=== PATIENT | male | born 1970 | race Caucasian/White ===

== ENCOUNTER → 2019-01-09 11:18 | Outpatient (CLI) | payer OTHER, MEDICAID, SELFPAY ==
--- NOTE | 2019-01-09 11:19 | DI.RAD.S_ITS ---
PROCEDURE: XR KNEE RT 3V INDICATIONS: fall TECHNIQUE: 30 views of the knee were acquired. COMPARISON: None. FINDINGS: Bones: No fractures or dislocations. Joint spaces appear preserved. No suspicious bony lesions. Soft tissues: No joint effusion. No suspicious soft tissue calcifications. IMPRESSION: 1. No fracture or dislocation. Dictated by: Micha Lobo M.D. on 01/09/2019 at 11:50 Approved by: Micha Lobo M.D. on 01/09/2019 at 11:51
== END ==
PROVIDERS: Visit Provider Physician Assistant
DX: M25.561 Pain in right knee (principal)
CPT/HCPCS: 73562; 87070; 87205

== ENCOUNTER → 2019-01-09 12:35 | Outpatient (CLI) | payer OTHER, MEDICAID, SELFPAY | PROVIDERS: Visit Provider Physician Assistant | DX: S80.211A Abrasion, right knee, initial encounter (principal) | CPT/HCPCS: 87070; 87205 ==

== ENCOUNTER 2019-04-23 09:13 | Emergency (ER) | payer OTHER, MEDICAID, SELFPAY ==
[2019-04-23 09:22] VITALS: BP 110/74; PULSE 66; RESP 14; TEMP 36.8; O2SAT 94; BMI 31.0
--- NOTE | 2019-04-23 09:41 | ED.BACK ---
HPI - Back Pain/Injury General Chief Complaint: Back Pain/Injury Stated Complaint: Pain in upper back,pain down rt arm/elbow Time Seen by Provider: 04/23/19 09:40 Source: patient Limitations: no limitations History of Present Illness HPI Narrative: Patient is a 48-year-old male with acute on chronic thoracic back pain. It has been ongoing for a number of months if not years. 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 He has some numbness tingling in his left upper arm it has been there for a while. He feels like the pain is a little bit worse he has been taking ibuprofen and his medical marijuana he says his it is worse today. He has been using ice not heat. He does not want any narcotic medication. MD Complaint: back pain Related Data Previous Rx's Medication Instructions Recorded cyclobenzaprine 5 mg PO TID PRN #10 tab 04/23/19 Allergies Allergy/AdvReac Type Severity Reaction Status Date / Time No Known Drug Allergies Allergy Verified 04/23/19 09:22 Review of Systems Review of Systems ROS Unobtainable: All systems reviewed & are unremarkable except as noted in HPI and below Constitutional Constitutional: Denies chills, Denies fever(s), Denies lethargy and Denies weakness Eyes Eyes: Denies change in vision, Denies eye discharge, Denies irritation and Denies loss of vision Cardiovascular Cardiovascular: Denies chest pain, Denies irregular heart rhythm, Denies lightheadedness, Denies palpitations, Denies dyspnea, Denies dyspnea on exertion and Denies orthopnea Respiratory Respiratory: Denies cough, Denies dyspnea, Denies dyspnea on exertion and Denies wheezing Gastrointestinal Gastrointestinal: Denies abdominal pain, Denies change in bowel habits, Denies diarrhea, Denies nausea and Denies vomiting Musculoskeletal Musculoskeletal: Reports system reviewed and no additional complaints, except as docu and Reports back pain Integumentary/Breasts Skin/Breast: Denies pruritus, Denies erythema, Denies rash and Denies wounds Neurologic Neurologic: Denies loss of vision and Denies weakness Endocrine Endocrine: Denies palpitations Allergic/Immunologic Allergic/Immunologic: Denies wheezing [facility] Medical History Back pain, thoracic (Inactive) Surgical History Status post hernia repair Family History (Updated 10/09/14 @ 00:00 by Conversion Provider) Mother Age: 65 RSD (reflex sympathetic dystrophy) Social History Smoking Status: Never smoker Family History Mother Age: 65 RSD (reflex sympathetic dystrophy) Social History Smoking Status: Never smoker Exam Initial Vital Signs Initial Vital Signs: Vital Signs Temperature 98.2 F 04/23/19 09:22 Pulse Rate 66 04/23/19 09:22 Respiratory Rate 14 04/23/19 09:22 Blood Pressure 110/74 04/23/19 09:22 Pulse Oximetry 94 04/23/19 09:22 GENERAL: Well-appearing, well-nourished and in no acute distress. CARDIOVASCULAR: peripheral pulses in tact, cap refill <2 sec RESPIRATORY: No respiratory distress, speaks in full sentences without difficulty BACK: Thoracic back pain mostly to the right paraspinal muscles no midline tenderness. Not painful with palpation or movement EXTREMITIES: Normal range of motion, no clubbing or edema. Neurovascularly intact NEUROLOGICAL: Cranial nerves II through XII grossly intact. Normal gait and speech. SKIN: Warm, dry, no petechiae, no rashes or lesions. Course Vital Signs Vital signs: Vital Signs - 8 hr 04/23/19 09:22 04/23/19 10:30 Temperature 98.2 F Pulse Rate 66 77 Respiratory Rate 14 16 Blood Pressure 110/74 Blood Pressure [Left Arm] 115/71 Pulse Oximetry 94 96 MDM - Back Pain/Injury MDM Narrative Medical decision making narrative: Patient is not wanting any needles or Toradol. He is agreeable to Flexeril and muscle relaxer. Discharge Plan Departure Patient Disposition: Home Clinical Impression: Back pain, thoracic Qualifiers: Chronicity: acute Back pain laterality: right Qualified Code(s): M54.6 - Pain in thoracic spine Discharge Date/Time: 04/23/19 10:35 Instructions: DI for Thoracic Back Pain Activity Restrictions/Additional Instructions: *You have been diagnosed with thoracic back pain *What to do: Recommend outpatient follow-up with possible MRI and physical therapy *Continue to take medications as directed Flexeril 5 mg every 8 hours if needed for muscle spasm-->SENT TO [facility] Ibuprofen 800 mg every 8 hours with food for [id number] pain *Follow up with your primary care provider in 2-3 days *Return to ER if you should have increasing weakness, numbness, tingling or any new, worsening or concerning symptoms Prescriptions: New cyclobenzaprine 5 mg tablet 5 mg PO TID PRN (Reason: muscle spasm) Qty: 10 RF: 0 Referrals: Located Within [facility] [Outside]
[2019-04-23 10:30] VITALS: BP 115/71; PULSE 77; RESP 16; O2SAT 96
== END 2019-04-23 10:35 | disposition home or self-care (01) ==
PROVIDERS: Emergency Provider Emergency Medicine
DX: M54.6 Pain in thoracic spine (principal)
CPT/HCPCS: 99282

== ENCOUNTER → 2019-04-26 12:11 | Outpatient (CLI) | payer OTHER, MEDICAID, SELFPAY ==
--- NOTE | 2019-04-26 12:13 | DI.RAD.S_ITS ---
PROCEDURE: XR THORACIC SPINE 3V INDICATIONS: thoracic back pain right TECHNIQUE: 2 views of the thoracic spine were acquired. COMPARISON: None. FINDINGS: Bones: No fractures or dislocations. There is mild levoscoliosis of lower thoracic spine centered at T9-10 level is seen. Mild degenerative endplate changes are noted in mid to lower thoracic spine. No suspicious bony lesions. 12 pairs of ribs are noted, and appear intact where visualized. Soft tissues: No paravertebral stripe thickening. IMPRESSION: Mild degenerative disc disease in mid to lower thoracic spine. Very mild scoliosis of lower thoracic spine as above. No acute compression fracture or spondylolisthesis. Dictated by: Dain Jasso M.D. on 04/26/2019 at 15:42 Approved by: Dain Jasso M.D. on 04/26/2019 at 15:43
--- NOTE | 2019-04-26 12:13 | DI.RAD.S_ITS ---
PROCEDURE: XR CERVICAL SPINE 2V OR 3V INDICATIONS: neck pain with pushing objects away TECHNIQUE: 3 view(s) of the cervical spine were acquired. COMPARISON: None. FINDINGS: Bones: No fractures or dislocations to the C7 level. The lateral masses of C1 appear intact on the odontoid view. No suspicious bony lesions. Straightening of the normal lordotic curvature. Multilevel degenerative endplate sclerosis and spurring. Diffuse facet arthropathy. Moderate narrowing of the cervical disc spaces from the level of C4-C7. Corticated chronic ununited osteophyte at the anterior C3-C4 disc space. Soft tissues: No prevertebral soft tissue swelling. IMPRESSION: Moderate mid to lower multilevel cervical spondylosis and facet arthropathy Straightening of the normal lordotic curvature. Dictated by: Feliberto Phillips M.D. on 04/26/2019 at 15:07 Approved by: Feliberto Phillips M.D. on 04/26/2019 at 15:09
== END ==
PROVIDERS: PCP Nurse Practitioner Family; Visit Provider Nurse Practitioner Family
DX: M54.2 Cervicalgia (principal); M47.812 Spondylosis without myelopathy or radiculopathy, cervical region; M51.34 Other intervertebral disc degeneration, thoracic region; M41.84 Other forms of scoliosis, thoracic region
CPT/HCPCS: 72040; 72072

== ENCOUNTER 2019-04-27 09:09 | Emergency (ER) | payer OTHER, MEDICAID, SELFPAY ==
[2019-04-27 09:18] VITALS: BP 114/76; PULSE 105; RESP 18; TEMP 36.7; O2SAT 98; BMI 29.1
--- NOTE | 2019-04-27 09:30 | ED_ITS ---
HPI - Extremity Problem General Chief complaint: Extremity Problem,Nontraumatic Stated complaint: Neck & Arm Pain x2 weeks Time Seen by Provider: 04/27/19 09:26 Source: patient and EMS Mode of arrival: EMS Limitations: no limitations History of Present Illness HPI Narrative: The patient is a 48-year-old male who presents with chronic ongoing thoracic back pain in right arm numbness. He was seen evaluated here 04/23/2019 for the same. He does not want any narcotics. He was given Flexeril which she says has not helped at all. He actually got tablets with the PCP who ordered an x-ray and got him set up with physical therapy. Physical therapy is required before he has an MRI by his insurance. Unfortunately the physical therapy he was set up with does not take his insurance. He is extremely frustrated with the situation he continues to have pain mostly in his right arm. He is able to move his arm above his head all he has no decreased strength MD Complaint: extremity pain Related Data Home Medications Medication Instructions Recorded Confirmed ibuprofen 200 mg tablet 600 mg PO BID PRN tab 04/26/19 04/26/19 Previous Rx's Medication Instructions Recorded cyclobenzaprine 10 mg tablet 10 mg PO TID PRN #60 tab 04/26/19 lidocaine 3 patch TOP DAILY PRN #15 each 04/27/19 Allergies Allergy/AdvReac Type Severity Reaction Status Date / Time No Known Drug Allergies Allergy Verified 04/26/19 11:20 Review of Systems Review of Systems Narrative: GENERAL: Denies chills,fever HEENT: Denies throat pain RESPIRATORY: Denies dyspnea, cough, wheezing CARDIOVASCULAR: Denies chest pain, palpitations GASTROINTESTINAL: Denies nausea, vomiting MUSCULOSKELETAL: See HPI SKIN: No rash, no laceration, no pruritus NEUROLOGIC: Denies weakness, dizziness, headache, numbness 8 point review of systems is negative except for those stated above and HPI [facility] Medical History (Updated 04/27/19 @ 12:03 by Elisabeth Andersen CMA) Anxiety (Acute) Back pain, thoracic (Inactive) Diverticular disease (Acute ~2014) Hepatitis A (Acute ~1998) History of post traumatic stress disorder (Acute) Substance abuse (Acute) Surgical History Status post hernia repair Family History Mother Age: 65 RSD (reflex sympathetic dystrophy) Social History (Updated 04/27/19 @ 12:09 by Elisabeth Andersen CMA) marital status: pets and animals: Yes education level: high school occupational status: employed travel history: other leisure activities: other other: SKATING seatbelt use: always helmet use: Yes water heater temp set < 120 deg: Yes working smoke detector in home: Yes fire extinguisher in home: Yes carbon monox detector in home: Yes firearms in home: No do you feel safe at home: Yes Smoking Status: Former smoker second hand exposure: No alcohol intake: never substance use type: marijuana (Daily, smokes and edibles.) during the past year weight has: remained stable well-balanced diet: about half the time daily servings fruits/ve-1 caffeine: Yes (1-2 DRINKS PER DAY, NO SODA) eating out: 1-3 times/week additional social history: PHYSICAL ACTIVITIES: JOB IS [employer] Family History Mother Age: 65 RSD (reflex sympathetic dystrophy) Social History (Updated 04/27/19 @ 12:09 by Elisabeth Andersen CMA) marital status: pets and animals: Yes education level: high school occupational status: employed travel history: other leisure activities: other other: SKATING seatbelt use: always helmet use: Yes water heater temp set < 120 deg: Yes working smoke detector in home: Yes fire extinguisher in home: Yes carbon monox detector in home: Yes firearms in home: No do you feel safe at home: Yes Smoking Status: Former smoker second hand exposure: No alcohol intake: never substance use type: marijuana (Daily, smokes and edibles.) during the past year weight has: remained stable well-balanced diet: about half the time daily servings fruits/ve-1 caffeine: Yes (1-2 DRINKS PER DAY, NO SODA) eating out: 1-3 times/week additional social history: PHYSICAL ACTIVITIES: JOB IS [employer] Exam Initial Vital Signs Initial Vital Signs: Vital Signs Temperature 98.1 F 04/27/19 09:18 Pulse Rate 105 H 04/27/19 09:18 Respiratory Rate 18 04/27/19 09:18 Blood Pressure 114/76 04/27/19 09:18 Pulse Oximetry 98 04/27/19 09:18 GENERAL: Well-appearing, well-nourished and in no acute distress. CARDIOVASCULAR: peripheral pulses in tact, cap refill <2 sec RESPIRATORY: No respiratory distress, speaks in full sentences without difficulty EXTREMITIES: Normal range of motion, no clubbing or edema. Neurovascularly intact. Patient easily put both arms above his head. He seems to be moving his right arm without any difficulty. He is complaining of numbness tingling pain in his right upper arm and elbow area. None in his hands. No significant thoracic or midline spinal pain NEUROLOGICAL: Cranial nerves II through XII grossly intact. Normal gait and speech. SKIN: Warm, dry, no petechiae, no rashes or lesions. Course Vital Signs Vital signs: Vital Signs - 8 hr 04/27/19 09:18 Temperature 98.1 F Pulse Rate 105 H Respiratory Rate 18 Blood Pressure 114/76 Pulse Oximetry 98 MDM - Extremity (Nontraumatic) MDM Narrative Medical decision making narrative: I have called and spoken with Levy MONDRAGON and P updated her on the situation an insurance issue. She will be sure that physical therapy goes through the correct insurance company. I have given patient lidocaine patches to help with his neuropathy. We discussed escalating that to gabapentin or Lyrica if his pain persists. She will also try and expedite an MRI. I have discussed this with the patient he is happy with this result. He is ambulatory no sign of significant neuro deficits. No need for emergent MRI at this time Discharge Plan Departure Patient Disposition: Home Clinical Impression: Neuropathy Discharge Date/Time: 04/27/19 10:38 Instructions: DI for Peripheral Neuropathy Activity Restrictions/Additional Instructions: *You have been diagnosed with neuropathy *What to do: I have called and spoken with these meds office. They will try to expedite the MRI along with getting the correct physical therapy *Continue to take medications as directed Lidocaine patch in the specific area of pain for 12 hours only then r emove-->[facility] [place] *Follow up with your primary care provider in 2-3 days *Return to ER if you should have weakness and numbness tingling or any new, worsening or concerning symptoms Prescriptions: New lidocaine 5 % adhesive patch,medicated 3 patch TOP DAILY PRN (Reason: pain) Qty: 15 RF: 0 No Action ibuprofen 200 mg tablet 600 mg PO BID PRNRF: 0 cyclobenzaprine 10 mg tablet 10 mg PO TID PRN (Reason: muscle spasm) Qty: 60 RF: 0 Referrals: Timo Nicole ARNP [Primary Care Provider] -
[2019-04-27 10:33] VITALS: BP 104/69; PULSE 75; RESP 16; O2SAT 96
== END 2019-04-27 10:38 | disposition home or self-care (01) ==
PROVIDERS: Emergency Provider Emergency Medicine; PCP Nurse Practitioner Family
DX: G62.9 Polyneuropathy, unspecified (principal)
CPT/HCPCS: 99282

== ENCOUNTER 2019-06-07 13:45 | Outpatient (RCR) | payer OTHER, MEDICAID, SELFPAY ==
--- NOTE | 2019-05-09 19:08 | PT.OIE ---
Current Diagnoses Pain in thoracic spine (05/09/19) Past Medical History (Last Updated 04/27/19 @ 12:03 by Elisabeth Andersen CMA) Anxiety (Acute) Back pain, thoracic (Inactive) Diverticular disease (Acute ~2014) Hepatitis A (Acute ~1998) History of post traumatic stress disorder (Acute) Substance abuse (Acute) Past Surgical History (Last Reviewed 04/27/19 @ 09:53 by Laina Frye DO) Status post hernia repair Visit Care Team Role Provider Type MADELINE Orosco Attending Provider Advanced Funeral Service Manager Primary Care Provider Specialty: Family Practice Address: [address] [place] [address], [facility] Email: [email or web address] Physical Therapy Initial Evaluation PT-OP-A Visit Information Start: 05/09/19 18:19 Freq: Status: Active Protocol: Document 05/09/19 13:50 HH (Rec: 05/09/19 19:08 [email or web address]) Out-Patient Physical Therapy Visit Information Visit Information Visit Type Initial Evaluation Visit Start Time 13:50 Visit Stop Time 14:30 Total Visit Minutes 40 Visit Number 08/03 Evaluation Information Evaluation Date 05/09/19 PT-OP-B Current Condition Start: 05/09/19 18:19 Freq: Status: Active Protocol: Document 05/09/19 13:50 HH (Rec: 05/09/19 19:08 [email or web address]) Current Condition History of Current Condition Onset Date 6 weeks ago Current Complaints c/o Neck, R mid back and R shoulder pain with radicular symptoms. History of Current Condition Pt is a 48 yo male who presents to clinic with c/o Neck, R mid back and R shoulder pain with radicular symptoms. He stated his pain started from 6 weeks ago with unknown reason. His job does require him to lift heavy objects overhead repetitively and he thinks that might be the reason why. He described his pain started from his mid back and R upper trap area, along with radiating pain to his R elbow and tingling sensation to his first 4 fingers. He has been getting better for the past week and able to restore his full cervical and shoulder AROM. His pain and tingling sensation tends to get worse with cervical motion, especially cervical extension and lateral flexion. He stated flexion feels like stretching ; extension feels like pressure. He did get an assessment from [facility] but his insurance is not covered. The PT told pt he possibly has cervical herniated disc which causes nerve root impingement . He has been seeing chiropractor 1-2x/month to release his body tightness, but his last tx session made his R midback pain worse. Pt currently uses steroid / lidocaine to reduce pain. 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 To relieve his neck pain and radicular symptoms 2. To be able to lift heavy objects at work without pain again. Personal Factors Other Personal Factors That May Effect Chronic marijuana user Therapy/Recovery anxiety PTSD PT-OP-C Subjective Start: 05/09/19 18:19 Freq: Status: Active Protocol: Document 05/09/19 13:50 HH (Rec: 05/09/19 19:08 HH [email or web address]) OP-PT Subjective Patient Comments Patient Comments I just want to get better to reduce my pain. Patient Questionnaires Oswestry Low Back Index Oswestry Score 38 Oswestry Impairment 20 to 39% Impaired (Score 20- 39) Quick Dash- Upper Extremity Quick Dash UE Score 59.09 Quick Dash UE Impairment 40 to 59% Impaired (Score 40- 59) OP-PT Pain Assessment Location R shoulder Pain Location Details upper trap, thoracic paraspinal Intensity 6 Scale Used Numeric (1 - 10) Description Acute,Pinching,Pressure, Radiating Frequency Constant Pain Aggravating Factors Activity,Exercise,Bending, Lifting Pain Alleviating Factors Inactivity PT-OP-F Manual Assessment Start: 05/09/19 18:19 Freq: Status: Active Protocol: Document 05/09/19 13:50 HH (Rec: 05/09/19 19:08 HH [email or web address]) Manual Assessments Soft Tissue Assessment Soft Tissue Mobility Assessment Significant tenderness to touch and pressure at R levator scap, upper trap, suboccipital and thoracic paraspinals PT-OP-H Neuro Start: 05/09/19 18:19 Freq: Status: Active Protocol: Document 05/09/19 13:50 HH (Rec: 05/09/19 19:08 [email or web address]) Sensation Evaluation Gross Sensation Gross Sensation Right UE Impaired Sensation Description Numbness,Tingling Dermatome Impairments C5,C6,C7 Deep Tendon Reflex & Clonus Assessment Deep Tendon Reflex Bilateral Brachioradialis Deep Tendon Reflex 2+ Normal Bilateral Tricep Deep Tendon Reflex 2+ Normal Bilateral Bicep Deep Tendon Reflex 2+ Normal PT-OP-J Posture/Palpation/Skin Start: 05/09/19 18:19 Freq: Status: Active Protocol: Document 05/09/19 13:50 HH (Rec: 05/09/19 19:08 [email or web address]) Posture Evaluation Position Standing Head/C-Spine Posture Forward Head T-Spine Posture Increased Kyphosis Shoulder Posture (L) Rounded,(R) Rounded,(L) Forward,(R) Forward,(R) Elevated Comments Posture Comments Noticeable dowager's hump at T -T3 PT-OP-K Range of Motion Start: 05/09/19 18:19 Freq: Status: Active Protocol: Document 05/09/19 13:50 HH (Rec: 05/09/19 19:08 [email or web address]) Cervical Spine Range of Motion Cervical Spine Active Degrees Comments WFL cervical extension and lateral flexion with angulation at C7 -C8 Shoulder Goniometric Range of Motion Shoulder Left Active Shoulder ROM WFL Yes Testing Position Standing Right Active Shoulder ROM WFL Yes Testing Position Standing PT-OP-L Special Tests Start: 05/09/19 18:19 Freq: Status: Active Protocol: Document 05/09/19 13:50 HH (Rec: 05/09/19 19:08 [email or web address]) Special Tests Cervical Spine Special Tests Upper Limb Tension Test Test Results +VE Comments radial and median nerve Spurling's Test Test Results +VE Comments increased tingling and numbness to R hand Foraminal Compression Test Results +VE Comments increased tingling and numbness to R hand PT-OP-M Strength Start: 05/09/19 18:19 Freq: Status: Active Protocol: Document 05/09/19 13:50 HH (Rec: 05/09/19 19:08 [email or web address]) Cervical Spine Strength Cervical Spine Manual Muscle Testing Testing Position Sitting Flexion (C1-2) 4 Good Extension 4- Good- Rotation Left 4- Good- Rotation Right 4- Good- Lateral Flexion Left (C3) 4- Good- Lateral Flexion Right (C3) 4- Good- Reason Not Measured Pain Comments pain and numbness to R hand with overpressure for extension Shoulder Strength Shoulder Manual Muscle Testing Right Flexion 4+ Good+ Extension 4+ Good+ Abduction (C5) 4+ Good+ Adduction 4+ Good+ External Rotation 4+ Good+ Reason Not Measured Pain Comments pt c/o increased pain to right arm and tingling sensation to R hand noticeable increased R upper trap tension with shoulder abduction Left Flexion 5 Normal Extension 5 Normal Abduction (C5) 5 Normal Adduction 5 Normal Reason Not Measured WFL PT-OP-Q Treatments Start: 05/09/19 18:19 Freq: Status: Active Protocol: Document 05/09/19 13:50 HH (Rec: 05/09/19 19:08 [email or web address]) Therapeutic Exercises Sitting Exercises seated chin tuck Side bilateral Comments for HEP Manual Therapy Treatment Manual Traction cervical traction Body Position Supine Reps/Duration 10secs x 5 PT-OP-T Assessment and Plan Start: 05/09/19 18:19 Freq: Status: Active Protocol: Document 05/09/19 13:50 HH (Rec: 05/09/19 19:08 [email or web address]) Physical Therapy Assessment Rehab Potential Rehabilitation Potential Good Evaluation Complexity Number of Personal Factors/Comorbidities 1-2 Number of Body Systems Impaired 1-2 Clinical Presentation at Evaluation Stable Impairments Impairments Functional Activities, Functional Mobility,Pain, Posture,ROM,Sensation,Soft Tissue Mobility,Strength Other Concerns Barriers to Rehabilitation Pt stated he has PTSD and uses marijuana to manage his stress. Goals hEP Impairment pt does not have HEP Scientific Informatics Project Leader Goal (LTG) Pt will be able to perform HEP safely and independently to be able to return to work safely without increase in symptoms. LTG Duration 8 weeks pain Impairment pt has R shoulder and midback pain 6/10 at all times Short Term Goal (STG) Pt will not have R shoulder and midback pain >5/10 with overhead or cervical movements . STG Duration 4 weeks Scientific Informatics Project Leader Goal (LTG) Pt will not have R shoulder and midback pain >3/10 with overhead, cervical or lifting movements. LTG Duration 8 weeks radicular symptoms Impairment pt c/o tingling and numbness in his R hand at all times. Short Term Goal (STG) Pt will only have tingling and numbness in his R hand with overhead or cervical movements only. STG Duration 4 weeks Detention Goal (LTG) Pt will not have any tingling and numbness in his R hand with overhead or cervical movements. LTG Duration 8 weeks quick dash and oswestry LBP Impairment Pt scores Oswestry = 38, quickdash= 59 Short Term Goal (STG) Pt will reach <20-39% impairment for both Oswestry and quickdash questionnaires to improve his quality of life STG Duration 4 weeks Scientific Informatics Project Leader Goal (LTG) Pt will reach <1-19% impairment for both Oswestry and quickdash questionnaires to improve his quality of life LTG Duration 8 weeks Assessment Summary Assessment Pt is a 48 yo male who presents to clinic with c/o Neck, R mid back and R shoulder pain with radicular symptoms since 6 weeks ago. Pt appears to be very anxious easily and impulsive with instructed movements. He needed constant cues to slow him down in general. Upon assessment, pt presents Cervical radiculopathy possibly due to herniated disc from his repetitive overhead lifting activities from work. Pt's tingling and numbness sensation in his R hand got worse with close packed position (C/S extension, lateral flexion/ rotation), along with +ve special tests: cervical compression, spurling to R and UTTT for radial and median nerve. However, at this point, pt does not demonstrate any ROM/ strength loss, but there's noticeable dowager's hump at CT junction region and R shoulder hike during overhead movements/ resting posture. There's hypertonic muscle activity for R upper trap, levator scap and thoracic paraspinals as well. Since pt appears to be impulsive and anxious easily, his progress might vary. He will still be a good candidate for skilled therapy to improve his neural sensitivity , thoracic joint mobility, R shoulder muscular tension, and functional mobility and strength for his labor demanding job. Physical Therapy Plan Frequency and Duration Frequency of Treatment 2x/Week Duration of Treatment 8 weeks Plan of Care Start Date 05/09/19 Plan of Care End Date 07/08/19 Therapeutic Interventions Therapeutic Interventions Home Exercise Program,Joint Mobilizations,Manual Therapy, Neuromuscular Re-education, Patient/Caregiver Education, Self-Care/Home Management,Soft Tissue Mobilization,Taping, Therapeutic Activities, Therapeutic Exercises Modalities Cold Pack/Ice Massage,Electric Stimulation,Hot Packs, Infrared Therapy,Traction- Mechanical,Ultrasound Next Visit Focus/Plan Next Note Type Treatment Note Next Visit Plan reassess chin tuck, c/s traction cont c/s traction as alta nerve glide UT relaxation neck stretch for HEP
--- NOTE | 2019-05-16 11:27 | PT.OTN ---
Current Diagnoses Pain in thoracic spine (05/16/19) Physical Therapy Treatment Note PT-OP-A Visit Information Start: 05/09/19 18:19 Freq: Status: Active Protocol: Document 05/16/19 09:49 JG (Rec: 05/16/19 10:37 JG [id number]) Out-Patient Physical Therapy Visit Information Visit Information Visit Type Treatment Note Visit Start Time 09:49 Visit Stop Time 10:35 Total Visit Minutes 41 Visit Number 2/9 Number of PRISM MEASURER Visits 0 PT-OP-B Current Condition Start: 05/09/19 18:19 Freq: Status: Active Protocol: Document 05/09/19 13:50 HH (Rec: 05/09/19 19:08 HH [email or web address]) Current Condition History of Current Condition Onset Date 6 weeks ago Current Complaints c/o Neck, R mid back and R shoulder pain with radicular symptoms. History of Current Condition Pt is a 48 yo male who presents to clinic with c/o Neck, R mid back and R shoulder pain with radicular symptoms. He stated his pain started from 6 weeks ago with unknown reason. His job does require him to lift heavy objects overhead repetitively and he thinks that might be the reason why. He described his pain started from his mid back and R upper trap area, along with radiating pain to his R elbow and tingling sensation to his first 4 fingers. He has been getting better for the past week and able to restore his full cervical and shoulder AROM. His pain and tingling sensation tends to get worse with cervical motion, especially cervical extension and lateral flexion. He stated flexion feels like stretching ; extension feels like pressure. He did get an assessment from [facility] but his insurance is not covered. The PT told pt he possibly has cervical herniated disc which causes nerve root impingement . He has been seeing chiropractor 1-2x/month to release his body tightness, but his last tx session made his R midback pain worse. Pt currently uses steroid / lidocaine to reduce pain. 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 To relieve his neck pain and radicular symptoms 2. To be able to lift heavy objects at work without pain again. Personal Factors Other Personal Factors That May Effect Chronic marijuana user Therapy/Recovery anxiety PTSD PT-OP-C Subjective Start: 05/09/19 18:19 Freq: Status: Active Protocol: Document 05/16/19 09:49 JG (Rec: 05/16/19 10:37 JG [id number]) OP-PT Subjective Patient Comments Patient Comments I want my numbness and pain to stop. I have been feeling the shoulder pain more today, woke up feeling really bad. My arm was so numb the other day I didn't feel when it go punctured with a nail at work. But the past couple days my neck and shoulders were not as bad relatively speaking. Eli been doing my chin tuck PT-OP-F Manual Assessment Start: 05/09/19 18:19 Freq: Status: Active Protocol: Document 05/09/19 13:50 HH (Rec: 05/09/19 19:08 [email or web address]) Manual Assessments Soft Tissue Assessment Soft Tissue Mobility Assessment Significant tenderness to touch and pressure at R levator scap, upper trap, suboccipital and thoracic paraspinals PT-OP-H Neuro Start: 05/09/19 18:19 Freq: Status: Active Protocol: Document 05/09/19 13:50 HH (Rec: 05/09/19 19:08 [email or web address]) Sensation Evaluation Gross Sensation Gross Sensation Right UE Impaired Sensation Description Numbness,Tingling Dermatome Impairments C5,C6,C7 Deep Tendon Reflex & Clonus Assessment Deep Tendon Reflex Bilateral Brachioradialis Deep Tendon Reflex 2+ Normal Bilateral Tricep Deep Tendon Reflex 2+ Normal Bilateral Bicep Deep Tendon Reflex 2+ Normal PT-OP-J Posture/Palpation/Skin Start: 05/09/19 18:19 Freq: Status: Active Protocol: Document 05/09/19 13:50 HH (Rec: 05/09/19 19:08 [email or web address]) Posture Evaluation Position Standing Head/C-Spine Posture Forward Head T-Spine Posture Increased Kyphosis Shoulder Posture (L) Rounded,(R) Rounded,(L) Forward,(R) Forward,(R) Elevated Comments Posture Comments Noticeable dowager's hump at T -T3 PT-OP-K Range of Motion Start: 05/09/19 18:19 Freq: Status: Active Protocol: Document 05/09/19 13:50 HH (Rec: 05/09/19 19:08 [email or web address]) Cervical Spine Range of Motion Cervical Spine Active Degrees Comments WFL cervical extension and lateral flexion with angulation at C7 -C8 Shoulder Goniometric Range of Motion Shoulder Left Active Shoulder ROM WFL Yes Testing Position Standing Right Active Shoulder ROM WFL Yes Testing Position Standing PT-OP-L Special Tests Start: 05/09/19 18:19 Freq: Status: Active Protocol: Document 05/09/19 13:50 HH (Rec: 05/09/19 19:08 HH [email or web address]) Special Tests Cervical Spine Special Tests Upper Limb Tension Test Test Results +VE Comments radial and median nerve Spurling's Test Test Results +VE Comments increased tingling and numbness to R hand Foraminal Compression Test Results +VE Comments increased tingling and numbness to R hand PT-OP-M Strength Start: 05/09/19 18:19 Freq: Status: Active Protocol: Document 05/09/19 13:50 HH (Rec: 05/09/19 19:08 HH [email or web address]) Cervical Spine Strength Cervical Spine Manual Muscle Testing Testing Position Sitting Flexion (C1-2) 4 Good Extension 4- Good- Rotation Left 4- Good- Rotation Right 4- Good- Lateral Flexion Left (C3) 4- Good- Lateral Flexion Right (C3) 4- Good- Reason Not Measured Pain Comments pain and numbness to R hand with overpressure for extension Shoulder Strength Shoulder Manual Muscle Testing Right Flexion 4+ Good+ Extension 4+ Good+ Abduction (C5) 4+ Good+ Adduction 4+ Good+ External Rotation 4+ Good+ Reason Not Measured Pain Comments pt c/o increased pain to right arm and tingling sensation to R hand noticeable increased R upper trap tension with shoulder abduction Left Flexion 5 Normal Extension 5 Normal Abduction (C5) 5 Normal Adduction 5 Normal Reason Not Measured WFL PT-OP-Q Treatments Start: 05/09/19 18:19 Freq: Status: Active Protocol: Document 05/16/19 09:49 JG (Rec: 05/16/19 10:37 JG [id number]) Therapeutic Exercises Prone Exercises prayer stretchg Side bilateral Comments elbow on table, upper thoracic extension Sitting Exercises upper trap stretch Side right Reps/Minutes 2x30 shoulder shamar Side bilateral Equipment Used overhead shamar Reps/Minutes 3 min Manual Therapy Treatment Soft Tissue Mobilization STM Body Location R scalenes, SCM, upper trap Mobilization Type Rolling,Strumming,Sustained Pressure Intensity/Depth Moderate Body Position Supine Joint Mobilizations PAs Joint CT junction through T4 Grade II Body Position Prone Reps/Duration 5 min Manual Traction cervical traction Body Position Supine Reps/Duration 10secs x 10 Comments Traction with flexion bias and side glides Nerve Glides median nerve glide Nerve Median Details Manual Body Position Supine Reps/Duration 2x20 Comments Unable to attain end position d/t sx. ulnar nerve glide Nerve Ulnar Details Manual Body Position Supine Reps/Duration 2x20 Comments Unable to attain end position d/t sx PT-OP-T Assessment and Plan Start: 05/09/19 18:19 Freq: Status: Active Protocol: Document 05/16/19 09:49 JG (Rec: 05/16/19 10:37 JG [id number]) Physical Therapy Assessment Impairments Impairments Functional Activities, Functional Mobility,Pain, Posture,ROM,Sensation,Soft Tissue Mobility,Strength Other Concerns Barriers to Rehabilitation Pt stated he has PTSD and uses marijuana to manage his stress. Goals hEP Impairment pt does not have HEP Poultry Hatchery Man Goal (LTG) Pt will be able to perform HEP safely and independently to be able to return to work safely without increase in symptoms. LTG Duration 8 weeks pain Impairment pt has R shoulder and midback pain 6/10 at all times Short Term Goal (STG) Pt will not have R shoulder and midback pain >5/10 with overhead or cervical movements . STG Duration 4 weeks Poultry Hatchery Man Goal (LTG) Pt will not have R shoulder and midback pain >3/10 with overhead, cervical or lifting movements. LTG Duration 8 weeks radicular symptoms Impairment pt c/o tingling and numbness in his R hand at all times. Short Term Goal (STG) Pt will only have tingling and numbness in his R hand with overhead or cervical movements only. STG Duration 4 weeks Penitentiary Goal (LTG) Pt will not have any tingling and numbness in his R hand with overhead or cervical movements. LTG Duration 8 weeks quick dash and oswestry LBP Impairment Pt scores Oswestry = 38, quickdash= 59 Short Term Goal (STG) Pt will reach <20-39% impairment for both Oswestry and quickdash questionnaires to improve his quality of life STG Duration 4 weeks Poultry Hatchery Man Goal (LTG) Pt will reach <1-19% impairment for both Oswestry and quickdash questionnaires to improve his quality of life LTG Duration 8 weeks Assessment Summary Assessment Pt reports stable arm and shoulder pain and numbness. Improved sx relief with cervical traction and STM. Pt cont to demonstrate high sx irritability with nerve stretches and nerve glide. New HEP includes prayer stretch, median and ulnar nerve glide, neck stretches. Physical Therapy Plan Frequency and Duration Frequency of Treatment 2x/Week Duration of Treatment 8 weeks Plan of Care Start Date 05/09/19 Plan of Care End Date 07/08/19 Therapeutic Interventions Therapeutic Interventions Home Exercise Program,Joint Mobilizations,Manual Therapy, Neuromuscular Re-education, Patient/Caregiver Education, Self-Care/Home Management,Soft Tissue Mobilization,Taping, Therapeutic Activities, Therapeutic Exercises Modalities Cold Pack/Ice Massage,Electric Stimulation,Hot Packs, Infrared Therapy,Traction- Mechanical,Ultrasound Next Visit Focus/Plan Next Note Type Treatment Note Next Visit Plan reassess chin tuck, c/s traction reassess new HEP, neuro symptoms t/s mobility cont c/s traction, STM as alta nerve glide UT relaxation
--- NOTE | 2019-05-18 09:16 | PT.OTN ---
Current Diagnoses Pain in thoracic spine (05/18/19) Physical Therapy Treatment Note PT-OP-A Visit Information Start: 05/09/19 18:19 Freq: Status: Active Protocol: Document 05/18/19 08:16 HH (Rec: 05/18/19 09:01 [id number]) Out-Patient Physical Therapy Visit Information Visit Information Visit Type Treatment Note Visit Start Time 08:16 Visit Stop Time 09:00 Total Visit Minutes 44 Visit Number 3/9 Number of VENEER SUPERVISOR Visits 0 PT-OP-B Current Condition Start: 05/09/19 18:19 Freq: Status: Active Protocol: Document 05/09/19 13:50 HH (Rec: 05/09/19 19:08 [email or web address]) Current Condition History of Current Condition Onset Date 6 weeks ago Current Complaints c/o Neck, R mid back and R shoulder pain with radicular symptoms. History of Current Condition Pt is a 48 yo male who presents to clinic with c/o Neck, R mid back and R shoulder pain with radicular symptoms. He stated his pain started from 6 weeks ago with unknown reason. His job does require him to lift heavy objects overhead repetitively and he thinks that might be the reason why. He described his pain started from his mid back and R upper trap area, along with radiating pain to his R elbow and tingling sensation to his first 4 fingers. He has been getting better for the past week and able to restore his full cervical and shoulder AROM. His pain and tingling sensation tends to get worse with cervical motion, especially cervical extension and lateral flexion. He stated flexion feels like stretching ; extension feels like pressure. He did get an assessment from [facility] but his insurance is not covered. The PT told pt he possibly has cervical herniated disc which causes nerve root impingement . He has been seeing chiropractor 1-2x/month to release his body tightness, but his last tx session made his R midback pain worse. Pt currently uses steroid / lidocaine to reduce pain. He is also a intermediate Marijuana user to reduce his stress and PTSD Treatment Goals Patient/Caregiver Goals 1. To relieve his neck pain and radicular symptoms 2. To be able to lift heavy objects at work without pain again. Personal Factors Other Personal Factors That May Effect Chronic marijuana user Therapy/Recovery anxiety PTSD PT-OP-C Subjective Start: 05/09/19 18:19 Freq: Status: Active Protocol: Document 05/18/19 08:16 HH (Rec: 05/18/19 09:01 HH [id number]) OP-PT Subjective Patient Comments Patient Comments Yesterday I felt pretty sore but today I'm feeling much better. I actually have feeling in my fingertips and I can sleep for short periods in my typical sleeping position. Patient Reported Progress Improving PT-OP-F Manual Assessment Start: 05/09/19 18:19 Freq: Status: Active Protocol: Document 05/09/19 13:50 HH (Rec: 05/09/19 19:08 HH [email or web address]) Manual Assessments Soft Tissue Assessment Soft Tissue Mobility Assessment Significant tenderness to touch and pressure at R levator scap, upper trap, suboccipital and thoracic paraspinals PT-OP-H Neuro Start: 05/09/19 18:19 Freq: Status: Active Protocol: Document 05/09/19 13:50 HH (Rec: 05/09/19 19:08 HH [email or web address]) Sensation Evaluation Gross Sensation Gross Sensation Right UE Impaired Sensation Description Numbness,Tingling Dermatome Impairments C5,C6,C7 Deep Tendon Reflex & Clonus Assessment Deep Tendon Reflex Bilateral Brachioradialis Deep Tendon Reflex 2+ Normal Bilateral Tricep Deep Tendon Reflex 2+ Normal Bilateral Bicep Deep Tendon Reflex 2+ Normal PT-OP-J Posture/Palpation/Skin Start: 05/09/19 18:19 Freq: Status: Active Protocol: Document 05/09/19 13:50 HH (Rec: 05/09/19 19:08 [email or web address]) Posture Evaluation Position Standing Head/C-Spine Posture Forward Head T-Spine Posture Increased Kyphosis Shoulder Posture (L) Rounded,(R) Rounded,(L) Forward,(R) Forward,(R) Elevated Comments Posture Comments Noticeable dowager's hump at T -T3 PT-OP-K Range of Motion Start: 05/09/19 18:19 Freq: Status: Active Protocol: Document 05/09/19 13:50 HH (Rec: 05/09/19 19:08 [email or web address]) Cervical Spine Range of Motion Cervical Spine Active Degrees Comments WFL cervical extension and lateral flexion with angulation at C7 -C8 Shoulder Goniometric Range of Motion Shoulder Left Active Shoulder ROM WFL Yes Testing Position Standing Right Active Shoulder ROM WFL Yes Testing Position Standing PT-OP-L Special Tests Start: 05/09/19 18:19 Freq: Status: Active Protocol: Document 05/09/19 13:50 HH (Rec: 05/09/19 19:08 [email or web address]) Special Tests Cervical Spine Special Tests Upper Limb Tension Test Test Results +VE Comments radial and median nerve Spurling's Test Test Results +VE Comments increased tingling and numbness to R hand Foraminal Compression Test Results +VE Comments increased tingling and numbness to R hand PT-OP-M Strength Start: 05/09/19 18:19 Freq: Status: Active Protocol: Document 05/09/19 13:50 HH (Rec: 05/09/19 19:08 [email or web address]) Cervical Spine Strength Cervical Spine Manual Muscle Testing Testing Position Sitting Flexion (C1-2) 4 Good Extension 4- Good- Rotation Left 4- Good- Rotation Right 4- Good- Lateral Flexion Left (C3) 4- Good- Lateral Flexion Right (C3) 4- Good- Reason Not Measured Pain Comments pain and numbness to R hand with overpressure for extension Shoulder Strength Shoulder Manual Muscle Testing Right Flexion 4+ Good+ Extension 4+ Good+ Abduction (C5) 4+ Good+ Adduction 4+ Good+ External Rotation 4+ Good+ Reason Not Measured Pain Comments pt c/o increased pain to right arm and tingling sensation to R hand noticeable increased R upper trap tension with shoulder abduction Left Flexion 5 Normal Extension 5 Normal Abduction (C5) 5 Normal Adduction 5 Normal Reason Not Measured WFL PT-OP-Q Treatments Start: 05/09/19 18:19 Freq: Status: Active Protocol: Document 05/18/19 08:16 (Rec: 05/18/19 09:01 [id number]) Therapeutic Exercises Standing Exercises Shoulder elevation Standing Exercise Name Rows and depression Side bilateral Equipment Used PVC Reps/Minutes x20 Comments PVC dowel behind back Manual Therapy Treatment Soft Tissue Mobilization Seated Body Location R upper/mid trap, levator scap , rhomboids, paraspinals Mobilization Type Rolling,Strumming,Sustained Pressure Intensity/Depth Moderate Body Position Sitting STM Body Location R scalenes, SCM, upper trap Mobilization Type Rolling,Strumming,Sustained Pressure Intensity/Depth Moderate Body Position Supine Joint Mobilizations PAs Joint CT junction through T4 Grade II Body Position Prone Reps/Duration 5 min Manual Traction cervical traction Body Position Supine Reps/Duration 10secs x 10 Comments Traction with flexion bias and side glides Nerve Glides median nerve glide Nerve Median Details Manual Body Position Supine Reps/Duration 5 min ulnar nerve glide Nerve Ulnar Details Manual Body Position Supine Reps/Duration 3 min PT-OP-T Assessment and Plan Start: 05/09/19 18:19 Freq: Status: Active Protocol: Document 05/18/19 08:16 (Rec: 05/18/19 09:01 [id number]) Physical Therapy Assessment Goals hEP Impairment pt does not have HEP Correction Goal (LTG) Pt will be able to perform HEP safely and independently to be able to return to work safely without increase in symptoms. LTG Duration 8 weeks pain Impairment pt has R shoulder and midback pain 6/10 at all times Short Term Goal (STG) Pt will not have R shoulder and midback pain >5/10 with overhead or cervical movements . STG Duration 4 weeks Package Liner Goal (LTG) Pt will not have R shoulder and midback pain >3/10 with overhead, cervical or lifting movements. LTG Duration 8 weeks radicular symptoms Impairment pt c/o tingling and numbness in his R hand at all times. Short Term Goal (STG) Pt will only have tingling and numbness in his R hand with overhead or cervical movements only. STG Duration 4 weeks Correction Goal (LTG) Pt will not have any tingling and numbness in his R hand with overhead or cervical movements. LTG Duration 8 weeks quick dash and oswestry LBP Impairment Pt scores Oswestry = 38, quickdash= 59 Short Term Goal (STG) Pt will reach <20-39% impairment for both Oswestry and quickdash questionnaires to improve his quality of life STG Duration 4 weeks Correction Goal (LTG) Pt will reach <1-19% impairment for both Oswestry and quickdash questionnaires to improve his quality of life LTG Duration 8 weeks Assessment Summary Assessment Pt reports improving neurological sx but cont to demonstrate impulsivity with neck movements that contribute to sx irritability. Improved tolerance for nerve glides. Cont hypertonicity of upper and mid trap with limited tolerance for STM and thoracic joint mobs. Physical Therapy Plan Frequency and Duration Frequency of Treatment 2x/Week Duration of Treatment 8 weeks Plan of Care Start Date 05/09/19 Plan of Care End Date 07/08/19 Next Visit Focus/Plan Next Note Type Treatment Note Next Visit Plan reassess chin tuck, c/s traction reassess new HEP, neuro symptoms t/s mobility with foam roller trunk extensor strengthening cont c/s traction, STM as alta nerve glide [place] relaxation
--- NOTE | 2019-05-25 13:26 | PT.OTN ---
Current Diagnoses Pain in thoracic spine (05/25/19) Physical Therapy Treatment Note PT-OP-A Visit Information Start: 05/09/19 18:19 Freq: Status: Active Protocol: Document 05/25/19 11:18 HH (Rec: 05/25/19 12:00 HH [id number]) Out-Patient Physical Therapy Visit Information Visit Information Visit Type Treatment Note Visit Start Time 11:18 Visit Stop Time 12:00 Total Visit Minutes 42 Visit Number 4/9 Number of CAD DESIGNER DRAFTER Visits 0 PT-OP-B Current Condition Start: 05/09/19 18:19 Freq: Status: Active Protocol: Document 05/09/19 13:50 HH (Rec: 05/09/19 19:08 HH [email or web address]) Current Condition History of Current Condition Onset Date 6 weeks ago Current Complaints c/o Neck, R mid back and R shoulder pain with radicular symptoms. History of Current Condition Pt is a 48 yo male who presents to clinic with c/o Neck, R mid back and R shoulder pain with radicular symptoms. He stated his pain started from 6 weeks ago with unknown reason. His job does require him to lift heavy objects overhead repetitively and he thinks that might be the reason why. He described his pain started from his mid back and R upper trap area, along with radiating pain to his R elbow and tingling sensation to his first 4 fingers. He has been getting better for the past week and able to restore his full cervical and shoulder AROM. His pain and tingling sensation tends to get worse with cervical motion, especially cervical extension and lateral flexion. He stated flexion feels like stretching ; extension feels like pressure. He did get an assessment from [facility] but his insurance is not covered. The PT told pt he possibly has cervical herniated disc which causes nerve root impingement . He has been seeing chiropractor 1-2x/month to release his body tightness, but his last tx session made his R midback pain worse. Pt currently uses steroid / lidocaine to reduce pain. He is also a shelter Marijuana user to reduce his stress and PTSD Treatment Goals Patient/Caregiver Goals 1. To relieve his neck pain and radicular symptoms 2. To be able to lift heavy objects at work without pain again. Personal Factors Other Personal Factors That May Effect Chronic marijuana user Therapy/Recovery anxiety PTSD PT-OP-C Subjective Start: 05/09/19 18:19 Freq: Status: Active Protocol: Document 05/25/19 11:18 HH (Rec: 05/25/19 12:00 HH [id number]) OP-PT Subjective Patient Comments Patient Comments My neck and arm are feeling great. I don't have any numbness right now, just a little tingling on the back of my hand. Able to feel my R hand again. I have been doing my homework. Patient Reported Progress Improving PT-OP-F Manual Assessment Start: 05/09/19 18:19 Freq: Status: Active Protocol: Document 05/09/19 13:50 HH (Rec: 05/09/19 19:08 [email or web address]) Manual Assessments Soft Tissue Assessment Soft Tissue Mobility Assessment Significant tenderness to touch and pressure at R levator scap, upper trap, suboccipital and thoracic paraspinals PT-OP-H Neuro Start: 05/09/19 18:19 Freq: Status: Active Protocol: Document 05/09/19 13:50 HH (Rec: 05/09/19 19:08 [email or web address]) Sensation Evaluation Gross Sensation Gross Sensation Right UE Impaired Sensation Description Numbness,Tingling Dermatome Impairments C5,C6,C7 Deep Tendon Reflex & Clonus Assessment Deep Tendon Reflex Bilateral Brachioradialis Deep Tendon Reflex 2+ Normal Bilateral Tricep Deep Tendon Reflex 2+ Normal Bilateral Bicep Deep Tendon Reflex 2+ Normal PT-OP-J Posture/Palpation/Skin Start: 05/09/19 18:19 Freq: Status: Active Protocol: Document 05/09/19 13:50 HH (Rec: 05/09/19 19:08 [email or web address]) Posture Evaluation Position Standing Head/C-Spine Posture Forward Head T-Spine Posture Increased Kyphosis Shoulder Posture (L) Rounded,(R) Rounded,(L) Forward,(R) Forward,(R) Elevated Comments Posture Comments Noticeable dowager's hump at T -T3 PT-OP-K Range of Motion Start: 05/09/19 18:19 Freq: Status: Active Protocol: Document 05/09/19 13:50 HH (Rec: 05/09/19 19:08 [email or web address]) Cervical Spine Range of Motion Cervical Spine Active Degrees Comments WFL cervical extension and lateral flexion with angulation at C7 -C8 Shoulder Goniometric Range of Motion Shoulder Left Active Shoulder ROM WFL Yes Testing Position Standing Right Active Shoulder ROM WFL Yes Testing Position Standing PT-OP-L Special Tests Start: 05/09/19 18:19 Freq: Status: Active Protocol: Document 05/09/19 13:50 HH (Rec: 05/09/19 19:08 [email or web address]) Special Tests Cervical Spine Special Tests Upper Limb Tension Test Test Results +VE Comments radial and median nerve Spurling's Test Test Results +VE Comments increased tingling and numbness to R hand Foraminal Compression Test Results +VE Comments increased tingling and numbness to R hand PT-OP-M Strength Start: 05/09/19 18:19 Freq: Status: Active Protocol: Document 05/09/19 13:50 HH (Rec: 05/09/19 19:08 [email or web address]) Cervical Spine Strength Cervical Spine Manual Muscle Testing Testing Position Sitting Flexion (C1-2) 4 Good Extension 4- Good- Rotation Left 4- Good- Rotation Right 4- Good- Lateral Flexion Left (C3) 4- Good- Lateral Flexion Right (C3) 4- Good- Reason Not Measured Pain Comments pain and numbness to R hand with overpressure for extension Shoulder Strength Shoulder Manual Muscle Testing Right Flexion 4+ Good+ Extension 4+ Good+ Abduction (C5) 4+ Good+ Adduction 4+ Good+ External Rotation 4+ Good+ Reason Not Measured Pain Comments pt c/o increased pain to right arm and tingling sensation to R hand noticeable increased R upper trap tension with shoulder abduction Left Flexion 5 Normal Extension 5 Normal Abduction (C5) 5 Normal Adduction 5 Normal Reason Not Measured WFL PT-OP-Q Treatments Start: 05/09/19 18:19 Freq: Status: Active Protocol: Document 05/25/19 11:18 HH (Rec: 05/25/19 12:00 [id number]) Therapeutic Exercises Sitting Exercises shoulder flexion Sitting Exercise Name AAROM Side bilateral Equipment Used PVC Reps/Minutes 3x20 Comments hip hinge for core engagement Standing Exercises thoracic extension Side bilateral Equipment Used bar Reps/Minutes 2x20 Comments cuing for flat low back Y Side bilateral Resistance Level 1 band Reps/Minutes 2x15 Comments with scap stabilization cuing neck rolls Side bilateral Equipment Used 10 lb weight in each hand Reps/Minutes x10 Comments cont inc'd sx with cervical extension Other Exercises shoulder blade push up Other Exercise Name push up plus Side bilateral Reps/Minutes 3x20 Comments quadruped f/b semi-stand with table support Manual Therapy Treatment Manual Traction cervical traction Body Position Supine Reps/Duration 10 min Comments Traction with flexion bias and side glides, shoulder depression Nerve Glides radial nerve glide Nerve Radial Details Manual Body Position Supine Reps/Duration 3 min median nerve glide Nerve Median Details Manual Body Position Supine Reps/Duration 5 min ulnar nerve glide Nerve Ulnar Details Manual Body Position Supine Reps/Duration 5 min PT-OP-T Assessment and Plan Start: 05/09/19 18:19 Freq: Status: Active Protocol: Document 05/25/19 11:18 HH (Rec: 05/25/19 12:00 HH [id number]) Physical Therapy Assessment Goals hEP Impairment pt does not have HEP Electronics Recycler Goal (LTG) Pt will be able to perform HEP safely and independently to be able to return to work safely without increase in symptoms. LTG Duration 8 weeks pain Impairment pt has R shoulder and midback pain 6/10 at all times Short Term Goal (STG) Pt will not have R shoulder and midback pain >5/10 with overhead or cervical movements . STG Duration 4 weeks Group Home Goal (LTG) Pt will not have R shoulder and midback pain >3/10 with overhead, cervical or lifting movements. LTG Duration 8 weeks radicular symptoms Impairment pt c/o tingling and numbness in his R hand at all times. Short Term Goal (STG) Pt will only have tingling and numbness in his R hand with overhead or cervical movements only. STG Duration 4 weeks Group Home Goal (LTG) Pt will not have any tingling and numbness in his R hand with overhead or cervical movements. LTG Duration 8 weeks quick dash and oswestry LBP Impairment Pt scores Oswestry = 38, quickdash= 59 Short Term Goal (STG) Pt will reach <20-39% impairment for both Oswestry and quickdash questionnaires to improve his quality of life STG Duration 4 weeks Electronics Recycler Goal (LTG) Pt will reach <1-19% impairment for both Oswestry and quickdash questionnaires to improve his quality of life LTG Duration 8 weeks Assessment Summary Assessment Cont improvements in neuro sx and good compliance with HEP. Improved tolerance for MT and nerve glides. Ther ex focused today on improving thoracic mobility and scapular engagement. Pt tolerated ther ex progression well and demonstrates good body awareness. Physical Therapy Plan Next Visit Focus/Plan Next Note Type Treatment Note Next Visit Plan reassess new HEP, neuro symptoms t/s mobility with foam roller trunk extensor/scapular strengthening cont c/s traction, STM as alta nerve glide [place] relaxation
--- NOTE | 2019-05-30 10:41 | PT.OTN ---
Current Diagnoses Pain in thoracic spine (05/30/19) Physical Therapy Treatment Note PT-OP-A Visit Information Start: 05/09/19 18:19 Freq: Status: Active Protocol: Document 05/30/19 09:48 HH (Rec: 05/30/19 10:41 HH [id number]) Out-Patient Physical Therapy Visit Information Visit Information Visit Type Treatment Note Visit Start Time 09:48 Visit Stop Time 10:31 Total Visit Minutes 43 Visit Number 5/9 Number of DRUM MAKER Visits 0 PT-OP-B Current Condition Start: 05/09/19 18:19 Freq: Status: Active Protocol: Document 05/09/19 13:50 HH (Rec: 05/09/19 19:08 HH [email or web address]) Current Condition History of Current Condition Onset Date 6 weeks ago Current Complaints c/o Neck, R mid back and R shoulder pain with radicular symptoms. History of Current Condition Pt is a 48 yo male who presents to clinic with c/o Neck, R mid back and R shoulder pain with radicular symptoms. He stated his pain started from 6 weeks ago with unknown reason. His job does require him to lift heavy objects overhead repetitively and he thinks that might be the reason why. He described his pain started from his mid back and R upper trap area, along with radiating pain to his R elbow and tingling sensation to his first 4 fingers. He has been getting better for the past week and able to restore his full cervical and shoulder AROM. His pain and tingling sensation tends to get worse with cervical motion, especially cervical extension and lateral flexion. He stated flexion feels like stretching ; extension feels like pressure. He did get an assessment from [facility] but his insurance is not covered. The PT told pt he possibly has cervical herniated disc which causes nerve root impingement . He has been seeing chiropractor 1-2x/month to release his body tightness, but his last tx session made his R midback pain worse. Pt currently uses steroid / lidocaine to reduce pain. He is also a longterm Marijuana user to reduce his stress and PTSD Treatment Goals Patient/Caregiver Goals 1. To relieve his neck pain and radicular symptoms 2. To be able to lift heavy objects at work without pain again. Personal Factors Other Personal Factors That May Effect Chronic marijuana user Therapy/Recovery anxiety PTSD PT-OP-C Subjective Start: 05/09/19 18:19 Freq: Status: Active Protocol: Document 05/30/19 09:48 HH (Rec: 05/30/19 10:41 HH [id number]) OP-PT Subjective Patient Comments Patient Comments Hand is good, back is good. Feel a little more pain/ tingling in the elbow region. Haven't done exercises as much because I have been working a lot. Patient Reported Progress Improving PT-OP-F Manual Assessment Start: 05/09/19 18:19 Freq: Status: Active Protocol: Document 05/09/19 13:50 HH (Rec: 05/09/19 19:08 HH [email or web address]) Manual Assessments Soft Tissue Assessment Soft Tissue Mobility Assessment Significant tenderness to touch and pressure at R levator scap, upper trap, suboccipital and thoracic paraspinals PT-OP-H Neuro Start: 05/09/19 18:19 Freq: Status: Active Protocol: Document 05/09/19 13:50 HH (Rec: 05/09/19 19:08 HH [email or web address]) Sensation Evaluation Gross Sensation Gross Sensation Right UE Impaired Sensation Description Numbness,Tingling Dermatome Impairments C5,C6,C7 Deep Tendon Reflex & Clonus Assessment Deep Tendon Reflex Bilateral Brachioradialis Deep Tendon Reflex 2+ Normal Bilateral Tricep Deep Tendon Reflex 2+ Normal Bilateral Bicep Deep Tendon Reflex 2+ Normal PT-OP-J Posture/Palpation/Skin Start: 05/09/19 18:19 Freq: Status: Active Protocol: Document 05/09/19 13:50 HH (Rec: 05/09/19 19:08 HH [email or web address]) Posture Evaluation Position Standing Head/C-Spine Posture Forward Head T-Spine Posture Increased Kyphosis Shoulder Posture (L) Rounded,(R) Rounded,(L) Forward,(R) Forward,(R) Elevated Comments Posture Comments Noticeable dowager's hump at T -T3 PT-OP-K Range of Motion Start: 05/09/19 18:19 Freq: Status: Active Protocol: Document 05/09/19 13:50 HH (Rec: 05/09/19 19:08 HH [email or web address]) Cervical Spine Range of Motion Cervical Spine Active Degrees Comments WFL cervical extension and lateral flexion with angulation at C7 -C8 Shoulder Goniometric Range of Motion Shoulder Left Active Shoulder ROM WFL Yes Testing Position Standing Right Active Shoulder ROM WFL Yes Testing Position Standing PT-OP-L Special Tests Start: 05/09/19 18:19 Freq: Status: Active Protocol: Document 05/09/19 13:50 HH (Rec: 05/09/19 19:08 [email or web address]) Special Tests Cervical Spine Special Tests Upper Limb Tension Test Test Results +VE Comments radial and median nerve Spurling's Test Test Results +VE Comments increased tingling and numbness to R hand Foraminal Compression Test Results +VE Comments increased tingling and numbness to R hand PT-OP-M Strength Start: 05/09/19 18:19 Freq: Status: Active Protocol: Document 05/09/19 13:50 HH (Rec: 05/09/19 19:08 [email or web address]) Cervical Spine Strength Cervical Spine Manual Muscle Testing Testing Position Sitting Flexion (C1-2) 4 Good Extension 4- Good- Rotation Left 4- Good- Rotation Right 4- Good- Lateral Flexion Left (C3) 4- Good- Lateral Flexion Right (C3) 4- Good- Reason Not Measured Pain Comments pain and numbness to R hand with overpressure for extension Shoulder Strength Shoulder Manual Muscle Testing Right Flexion 4+ Good+ Extension 4+ Good+ Abduction (C5) 4+ Good+ Adduction 4+ Good+ External Rotation 4+ Good+ Reason Not Measured Pain Comments pt c/o increased pain to right arm and tingling sensation to R hand noticeable increased R upper trap tension with shoulder abduction Left Flexion 5 Normal Extension 5 Normal Abduction (C5) 5 Normal Adduction 5 Normal Reason Not Measured WFL PT-OP-Q Treatments Start: 05/09/19 18:19 Freq: Status: Active Protocol: Document 05/30/19 09:48 HH (Rec: 05/30/19 10:41 [email or web address]) Therapeutic Exercises Supine Exercises Open book Supine Exercise Name with head follow Side bilateral Reps/Minutes Bx20 Sitting Exercises UTR Side bilateral Reps/Minutes Bx20 Comments modified d/t knee pain; cuing for hip hinge shoulder flexion Sitting Exercise Name Shoulder Y Side bilateral Equipment Used PVC Reps/Minutes 3x20 Comments hip hinge for core engagement upper trap stretch Side bilateral Reps/Minutes 2x30 sec Comments manual f/b self assist Other Exercises shoulder blade push up Other Exercise Name push up plus Side bilateral Reps/Minutes 2x20 Comments semi-stand with table support Manual Therapy Treatment Soft Tissue Mobilization Seated Body Location R supraspinatus, infraspinatus Mobilization Type Rolling,Strumming,Sustained Pressure Intensity/Depth Moderate Body Position Sitting STM Body Location B levator scap, upper trap Mobilization Type Rolling,Strumming,Sustained Pressure Intensity/Depth Moderate Body Position Supine Manual Traction cervical traction Body Position Supine Reps/Duration 10 min Comments Traction with flexion bias and side glides, shoulder depression Nerve Glides ulnar nerve glide Nerve Ulnar Details Manual Body Position Supine Reps/Duration 3 min Comments resisted stretch at end range Manual Techniques Shoulder ER Type PROM with 90dg abduction Body Location R shoulder Body Position sup Reps/Duration x20 Comments with sustained pressure on pec PT-OP-T Assessment and Plan Start: 05/09/19 18:19 Freq: Status: Active Protocol: Document 05/30/19 09:48 (Rec: 05/30/19 10:41 [id number]) Physical Therapy Assessment Goals hEP Impairment pt does not have HEP Half-Way Goal (LTG) Pt will be able to perform HEP safely and independently to be able to return to work safely without increase in symptoms. LTG Duration 8 weeks pain Impairment pt has R shoulder and midback pain 6/10 at all times Short Term Goal (STG) Pt will not have R shoulder and midback pain >5/10 with overhead or cervical movements . STG Duration 4 weeks Locomotive Driver Goal (LTG) Pt will not have R shoulder and midback pain >3/10 with overhead, cervical or lifting movements. LTG Duration 8 weeks radicular symptoms Impairment pt c/o tingling and numbness in his R hand at all times. Short Term Goal (STG) Pt will only have tingling and numbness in his R hand with overhead or cervical movements only. STG Duration 4 weeks Half-Way Goal (LTG) Pt will not have any tingling and numbness in his R hand with overhead or cervical movements. LTG Duration 8 weeks quick dash and oswestry LBP Impairment Pt scores Oswestry = 38, quickdash= 59 Short Term Goal (STG) Pt will reach <20-39% impairment for both Oswestry and quickdash questionnaires to improve his quality of life STG Duration 4 weeks Locomotive Driver Goal (LTG) Pt will reach <1-19% impairment for both Oswestry and quickdash questionnaires to improve his quality of life LTG Duration 8 weeks Assessment Summary Assessment Pt cont to demonstrate improving numbness in R arm and centralization of sx. Cont high sx irritability with thoracic spine and R rhomboid palpation. Pt requires frequent cuing to slow movement during ther ex. Greatly improved cervical AROM but cont limitation with SB R >L. Physical Therapy Plan Next Visit Focus/Plan Next Note Type Treatment Note Next Visit Plan reassess new HEP, neuro symptoms cervical SB AROM and strengthening t/s mobility with foam roller trunk extensor/scapular strengthening cont c/s traction, STM as alta nerve glide stabilization ther ex
--- NOTE | 2019-06-01 12:06 | PT.OTN ---
Current Diagnoses Pain in thoracic spine (06/01/19) Physical Therapy Treatment Note PT-OP-A Visit Information Start: 05/09/19 18:19 Freq: Status: Active Protocol: Document 06/01/19 11:18 HH (Rec: 06/01/19 12:06 [id number]) Out-Patient Physical Therapy Visit Information Visit Information Visit Type Treatment Note Visit Start Time 11:18 Visit Stop Time 11:59 Total Visit Minutes 41 Visit Number 6/9 Number of BELL CAPTAIN Visits 0 PT-OP-B Current Condition Start: 05/09/19 18:19 Freq: Status: Active Protocol: Document 05/09/19 13:50 HH (Rec: 05/09/19 19:08 [email or web address]) Current Condition History of Current Condition Onset Date 6 weeks ago Current Complaints c/o Neck, R mid back and R shoulder pain with radicular symptoms. History of Current Condition Pt is a 48 yo male who presents to clinic with c/o Neck, R mid back and R shoulder pain with radicular symptoms. He stated his pain started from 6 weeks ago with unknown reason. His job does require him to lift heavy objects overhead repetitively and he thinks that might be the reason why. He described his pain started from his mid back and R upper trap area, along with radiating pain to his R elbow and tingling sensation to his first 4 fingers. He has been getting better for the past week and able to restore his full cervical and shoulder AROM. His pain and tingling sensation tends to get worse with cervical motion, especially cervical extension and lateral flexion. He stated flexion feels like stretching ; extension feels like pressure. He did get an assessment from [facility] but his insurance is not covered. The PT told pt he possibly has cervical herniated disc which causes nerve root impingement . He has been seeing chiropractor 1-2x/month to release his body tightness, but his last tx session made his R midback pain worse. Pt currently uses steroid / lidocaine to reduce pain. He is also a custodial Marijuana user to reduce his stress and PTSD Treatment Goals Patient/Caregiver Goals 1. To relieve his neck pain and radicular symptoms 2. To be able to lift heavy objects at work without pain again. Personal Factors Other Personal Factors That May Effect Chronic marijuana user Therapy/Recovery anxiety PTSD PT-OP-C Subjective Start: 05/09/19 18:19 Freq: Status: Active Protocol: Document 06/01/19 11:18 HH (Rec: 06/01/19 12:06 HH [id number]) OP-PT Subjective Patient Comments Patient Comments I've been feeling pretty good . Still a little numbness around my elbow but my hands feel good. I was able to sleep in my normal sleeping position last night and it didn't bother me. Patient Reported Progress Improving PT-OP-F Manual Assessment Start: 05/09/19 18:19 Freq: Status: Active Protocol: Document 05/09/19 13:50 HH (Rec: 05/09/19 19:08 [email or web address]) Manual Assessments Soft Tissue Assessment Soft Tissue Mobility Assessment Significant tenderness to touch and pressure at R levator scap, upper trap, suboccipital and thoracic paraspinals PT-OP-H Neuro Start: 05/09/19 18:19 Freq: Status: Active Protocol: Document 05/09/19 13:50 HH (Rec: 05/09/19 19:08 [email or web address]) Sensation Evaluation Gross Sensation Gross Sensation Right UE Impaired Sensation Description Numbness,Tingling Dermatome Impairments C5,C6,C7 Deep Tendon Reflex & Clonus Assessment Deep Tendon Reflex Bilateral Brachioradialis Deep Tendon Reflex 2+ Normal Bilateral Tricep Deep Tendon Reflex 2+ Normal Bilateral Bicep Deep Tendon Reflex 2+ Normal PT-OP-J Posture/Palpation/Skin Start: 05/09/19 18:19 Freq: Status: Active Protocol: Document 05/09/19 13:50 HH (Rec: 05/09/19 19:08 [email or web address]) Posture Evaluation Position Standing Head/C-Spine Posture Forward Head T-Spine Posture Increased Kyphosis Shoulder Posture (L) Rounded,(R) Rounded,(L) Forward,(R) Forward,(R) Elevated Comments Posture Comments Noticeable dowager's hump at T -T3 PT-OP-K Range of Motion Start: 05/09/19 18:19 Freq: Status: Active Protocol: Document 05/09/19 13:50 HH (Rec: 05/09/19 19:08 [email or web address]) Cervical Spine Range of Motion Cervical Spine Active Degrees Comments WFL cervical extension and lateral flexion with angulation at C7 -C8 Shoulder Goniometric Range of Motion Shoulder Left Active Shoulder ROM WFL Yes Testing Position Standing Right Active Shoulder ROM WFL Yes Testing Position Standing PT-OP-L Special Tests Start: 05/09/19 18:19 Freq: Status: Active Protocol: Document 05/09/19 13:50 HH (Rec: 05/09/19 19:08 [email or web address]) Special Tests Cervical Spine Special Tests Upper Limb Tension Test Test Results +VE Comments radial and median nerve Spurling's Test Test Results +VE Comments increased tingling and numbness to R hand Foraminal Compression Test Results +VE Comments increased tingling and numbness to R hand PT-OP-M Strength Start: 05/09/19 18:19 Freq: Status: Active Protocol: Document 05/09/19 13:50 HH (Rec: 05/09/19 19:08 [email or web address]) Cervical Spine Strength Cervical Spine Manual Muscle Testing Testing Position Sitting Flexion (C1-2) 4 Good Extension 4- Good- Rotation Left 4- Good- Rotation Right 4- Good- Lateral Flexion Left (C3) 4- Good- Lateral Flexion Right (C3) 4- Good- Reason Not Measured Pain Comments pain and numbness to R hand with overpressure for extension Shoulder Strength Shoulder Manual Muscle Testing Right Flexion 4+ Good+ Extension 4+ Good+ Abduction (C5) 4+ Good+ Adduction 4+ Good+ External Rotation 4+ Good+ Reason Not Measured Pain Comments pt c/o increased pain to right arm and tingling sensation to R hand noticeable increased R upper trap tension with shoulder abduction Left Flexion 5 Normal Extension 5 Normal Abduction (C5) 5 Normal Adduction 5 Normal Reason Not Measured WFL PT-OP-Q Treatments Start: 05/09/19 18:19 Freq: Status: Active Protocol: Document 06/01/19 11:18 HH (Rec: 06/01/19 12:06 [email or web address]) Therapeutic Exercises Sitting Exercises Cervical SB Side bilateral Comments holding table; AAROM f/b AROM SB Side bilateral Equipment Used hiking pole Reps/Minutes Bx20 UTR Side bilateral Equipment Used hiking pole Reps/Minutes Bx20 Comments with scapular retraction shoulder flexion Sitting Exercise Name Ys Side bilateral Comments cuing to limit shoulder elevation Standing Exercises scapular depression Side right Equipment Used level 2 band Comments cuing for scapular depression rows Side right Equipment Used Level 1 band Comments cuing for scapular retraction Cervical ROM Side bilateral Comments cuing to limit shoulder elevation Y Side bilateral Resistance Level 1 band Reps/Minutes 2x15 Comments with scap stabilization cuing Other Exercises shoulder blade push up Other Exercise Name push up plus Side bilateral Reps/Minutes 3 min Comments semi-stand with bar support; added head turns Manual Therapy Treatment Soft Tissue Mobilization STM Body Location R teres, infraspintus Mobilization Type Rolling,Strumming,Sustained Pressure Intensity/Depth Moderate Body Position Prone Joint Mobilizations PAs Joint Upper thoracic intervertebral, R costovertebral Grade III Body Position Prone Reps/Duration 5 min Manual Traction cervical traction Body Position Supine Reps/Duration 10 min Comments Traction with flexion bias and side bend, shoulder depression PT-OP-T Assessment and Plan Start: 05/09/19 18:19 Freq: Status: Active Protocol: Document 06/01/19 11:18 (Rec: 06/01/19 12:06 [id number]) Physical Therapy Assessment Goals hEP Impairment pt does not have HEP Halfway Goal (LTG) Pt will be able to perform HEP safely and independently to be able to return to work safely without increase in symptoms. LTG Duration 8 weeks pain Impairment pt has R shoulder and midback pain 6/10 at all times Short Term Goal (STG) Pt will not have R shoulder and midback pain >5/10 with overhead or cervical movements . STG Duration 4 weeks Jukebox Operator Goal (LTG) Pt will not have R shoulder and midback pain >3/10 with overhead, cervical or lifting movements. LTG Duration 8 weeks radicular symptoms Impairment pt c/o tingling and numbness in his R hand at all times. Short Term Goal (STG) Pt will only have tingling and numbness in his R hand with overhead or cervical movements only. STG Duration 4 weeks Halfway Goal (LTG) Pt will not have any tingling and numbness in his R hand with overhead or cervical movements. LTG Duration 8 weeks quick dash and oswestry LBP Impairment Pt scores Oswestry = 38, quickdash= 59 Short Term Goal (STG) Pt will reach <20-39% impairment for both Oswestry and quickdash questionnaires to improve his quality of life STG Duration 4 weeks Jukebox Operator Goal (LTG) Pt will reach <1-19% impairment for both Oswestry and quickdash questionnaires to improve his quality of life LTG Duration 8 weeks Assessment Summary Assessment Pt reports cont improvement in neuro sx. Greatly improved tolerance for upper thoracic spine MT. Cont to demonstrate cervical PROM > AROM, especially with SB. Small improvements with repeated motions. Physical Therapy Plan Next Visit Focus/Plan Next Note Type Treatment Note Next Visit Plan reassess new HEP, neuro symptoms scao stability (depressoin) cervical SB AROM and strengthening t/s mobility with foam roller trunk extensor/scapular strengthening cont c/s traction, STM as alta nerve glide stabilization ther ex
--- NOTE | 2019-06-07 14:30 | PT.OTN ---
Current Diagnoses Pain in thoracic spine (06/07/19) Physical Therapy Treatment Note PT-OP-A Visit Information Start: 05/09/19 18:19 Freq: Status: Active Protocol: Document 06/07/19 13:47 HH (Rec: 06/07/19 14:29 HH [id number]) Out-Patient Physical Therapy Visit Information Visit Information Visit Type Discharge Summary Visit Start Time 13:47 Visit Stop Time 12:24 Total Visit Minutes 37 Visit Number 7/9 Number of PERSONAL SHOPPER Visits 0 PT-OP-B Current Condition Start: 05/09/19 18:19 Freq: Status: Active Protocol: Document 05/09/19 13:50 HH (Rec: 05/09/19 19:08 HH [email or web address]) Current Condition History of Current Condition Onset Date 6 weeks ago Current Complaints c/o Neck, R mid back and R shoulder pain with radicular symptoms. History of Current Condition Pt is a 48 yo male who presents to clinic with c/o Neck, R mid back and R shoulder pain with radicular symptoms. He stated his pain started from 6 weeks ago with unknown reason. His job does require him to lift heavy objects overhead repetitively and he thinks that might be the reason why. He described his pain started from his mid back and R upper trap area, along with radiating pain to his R elbow and tingling sensation to his first 4 fingers. He has been getting better for the past week and able to restore his full cervical and shoulder AROM. His pain and tingling sensation tends to get worse with cervical motion, especially cervical extension and lateral flexion. He stated flexion feels like stretching ; extension feels like pressure. He did get an assessment from [facility] but his insurance is not covered. The PT told pt he possibly has cervical herniated disc which causes nerve root impingement . He has been seeing chiropractor 1-2x/month to release his body tightness, but his last tx session made his R midback pain worse. Pt currently uses steroid / lidocaine to reduce pain. 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 To relieve his neck pain and radicular symptoms 2. To be able to lift heavy objects at work without pain again. Personal Factors Other Personal Factors That May Effect Chronic marijuana user Therapy/Recovery anxiety PTSD PT-OP-C Subjective Start: 05/09/19 18:19 Freq: Status: Active Protocol: Document 06/07/19 13:47 HH (Rec: 06/07/19 14:29 HH [id number]) OP-PT Subjective Patient Comments Patient Comments I'm feeling really good and can feel my elbow more now. I had to do a lot of lifting and overhead work this weekend and I felt fine afterwards. I think after Wednesday's appointment I should be good. Patient Reported Progress Improving PT-OP-F Manual Assessment Start: 05/09/19 18:19 Freq: Status: Active Protocol: Document 05/09/19 13:50 HH (Rec: 05/09/19 19:08 [email or web address]) Manual Assessments Soft Tissue Assessment Soft Tissue Mobility Assessment Significant tenderness to touch and pressure at R levator scap, upper trap, suboccipital and thoracic paraspinals PT-OP-H Neuro Start: 05/09/19 18:19 Freq: Status: Active Protocol: Document 05/09/19 13:50 HH (Rec: 05/09/19 19:08 [email or web address]) Sensation Evaluation Gross Sensation Gross Sensation Right UE Impaired Sensation Description Numbness,Tingling Dermatome Impairments C5,C6,C7 Deep Tendon Reflex & Clonus Assessment Deep Tendon Reflex Bilateral Brachioradialis Deep Tendon Reflex 2+ Normal Bilateral Tricep Deep Tendon Reflex 2+ Normal Bilateral Bicep Deep Tendon Reflex 2+ Normal PT-OP-J Posture/Palpation/Skin Start: 05/09/19 18:19 Freq: Status: Active Protocol: Document 05/09/19 13:50 HH (Rec: 05/09/19 19:08 [email or web address]) Posture Evaluation Position Standing Head/C-Spine Posture Forward Head T-Spine Posture Increased Kyphosis Shoulder Posture (L) Rounded,(R) Rounded,(L) Forward,(R) Forward,(R) Elevated Comments Posture Comments Noticeable dowager's hump at T -T3 PT-OP-K Range of Motion Start: 05/09/19 18:19 Freq: Status: Active Protocol: Document 05/09/19 13:50 HH (Rec: 05/09/19 19:08 [email or web address]) Cervical Spine Range of Motion Cervical Spine Active Degrees Comments WFL cervical extension and lateral flexion with angulation at C7 -C8 Shoulder Goniometric Range of Motion Shoulder Left Active Shoulder ROM WFL Yes Testing Position Standing Right Active Shoulder ROM WFL Yes Testing Position Standing PT-OP-L Special Tests Start: 05/09/19 18:19 Freq: Status: Active Protocol: Document 05/09/19 13:50 HH (Rec: 05/09/19 19:08 [email or web address]) Special Tests Cervical Spine Special Tests Upper Limb Tension Test Test Results +VE Comments radial and median nerve Spurling's Test Test Results +VE Comments increased tingling and numbness to R hand Foraminal Compression Test Results +VE Comments increased tingling and numbness to R hand PT-OP-M Strength Start: 05/09/19 18:19 Freq: Status: Active Protocol: Document 05/09/19 13:50 HH (Rec: 05/09/19 19:08 [email or web address]) Cervical Spine Strength Cervical Spine Manual Muscle Testing Testing Position Sitting Flexion (C1-2) 4 Good Extension 4- Good- Rotation Left 4- Good- Rotation Right 4- Good- Lateral Flexion Left (C3) 4- Good- Lateral Flexion Right (C3) 4- Good- Reason Not Measured Pain Comments pain and numbness to R hand with overpressure for extension Shoulder Strength Shoulder Manual Muscle Testing Right Flexion 4+ Good+ Extension 4+ Good+ Abduction (C5) 4+ Good+ Adduction 4+ Good+ External Rotation 4+ Good+ Reason Not Measured Pain Comments pt c/o increased pain to right arm and tingling sensation to R hand noticeable increased R upper trap tension with shoulder abduction Left Flexion 5 Normal Extension 5 Normal Abduction (C5) 5 Normal Adduction 5 Normal Reason Not Measured WFL PT-OP-Q Treatments Start: 05/09/19 18:19 Freq: Status: Active Protocol: Document 06/07/19 13:47 HH (Rec: 06/07/19 14:29 [id number]) Therapeutic Exercises Supine Exercises Chin tucks Side bilateral Reps/Minutes 3 x10 Comments with cervical rotation Standing Exercises shoulder rolls Side bilateral Resistance 7lb dumbbells Reps/Minutes 2 min Y Side bilateral Resistance Level 2 band Reps/Minutes 2x15 Comments with scap stabilization cuing neck rolls Side bilateral Resistance 7 lb dumbbells Reps/Minutes 2 min Other Exercises cervical rotation Side bilateral Reps/Minutes 2x10 Comments over exercise ball Y Side bilateral Reps/Minutes 2x10 Comments over exercise ball; cuing for scap retraction T Side bilateral Reps/Minutes 2x10 Comments over exercise ball; cuing for scap retraction Manual Therapy Treatment Manual Traction cervical traction Body Position Supine Reps/Duration 10 min Comments Traction with flexion bias and side bend, shoulder depression, rotation Nerve Glides median nerve glide Nerve Median Details Manual Body Position Supine Reps/Duration 3 min Comments Resisted stretch at end range ulnar nerve glide Nerve Ulnar Details Manual Body Position Supine Reps/Duration 3 min Comments resisted stretch at end range PT-OP-T Assessment and Plan Start: 05/09/19 18:19 Freq: Status: Active Protocol: Document 06/07/19 13:47 HH (Rec: 06/07/19 14:29 HH [id number]) Physical Therapy Assessment Goals hEP Impairment pt does not have HEP Residential Goal (LTG) 06/07 goal met. Pt is able to perform HEP safely and independently to be able to return to work safely without increase in symptoms. LTG Duration 8 weeks pain Impairment pt has R shoulder and midback pain 6/10 at all times Short Term Goal (STG) Pt will not have R shoulder and midback pain >5/10 with overhead or cervical movements . STG Duration 4 weeks Residential Goal (LTG) 06/07 goal met : no pain reported at work/ overhead movements. LTG Duration 8 weeks radicular symptoms Impairment pt c/o tingling and numbness in his R hand at all times. Short Term Goal (STG) Pt will only have tingling and numbness in his R hand with overhead or cervical movements only. STG Duration 4 weeks Residential Goal (LTG) goal met 06/07 Pt does not have any tingling and numbness in his R hand with overhead or cervical movements. 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 LTG Duration 8 weeks Assessment Summary Assessment Pt progress very well since IE . Full cervical ROM, strength and no neurological sx. He returns to his work without increase in symptoms. Improved sleep and no c/o tingling sensation anymore. D/c pt from therapy today. Physical Therapy Plan Discharge Physical Therapy Discharge Reasons Goals Met
== END 2019-06-09 07:31 ==
LOC: PHYS 13:45
PROVIDERS: PCP Nurse Practitioner Family; Visit Provider Nurse Practitioner Family
DX: M54.6 Pain in thoracic spine (principal)
CPT/HCPCS: 97110; 97140; 97162

== ENCOUNTER → 2022-06-04 13:52 | Outpatient (CLI) | payer OTHER, MEDICAID, SELFPAY ==
--- NOTE | 2022-06-04 13:53 | DI.RAD.S_ITS ---
PROCEDURE: XR CHEST 2V INDICATIONS: cough TECHNIQUE: 2 views of the chest were acquired. COMPARISON: None. FINDINGS: Surgical changes and devices: None. Lungs and pleura: Lungs are clear. No pleural effusions or pneumothorax. Mediastinum: Mediastinal contours are normal. Heart size is normal. Bones and chest wall: No suspicious bony abnormalities. Soft tissues appear unremarkable. IMPRESSION: No acute pulmonary process. Dictated by: Stacie Pepper M.D. on 06/04/2022 at 14:55 Approved by: Stacie Pepper M.D. on 06/04/2022 at 14:55
== END ==
PROVIDERS: PCP Nurse Practitioner Family; Referring Provider Registered Nurse; Visit Provider Registered Nurse
DX: R05.9 Cough, unspecified (principal)
CPT/HCPCS: 71046

== ENCOUNTER 2022-12-10 11:38 | Emergency (ER) | payer OTHER, MEDICAID, SELFPAY ==
[2022-12-10 11:48] VITALS: BP 131/81; PULSE 65; RESP 24; TEMP 36.7; O2SAT 99; BMI 30.5
--- NOTE | 2022-12-10 11:51 | DI.US.S_ITS ---
PROCEDURE: US SCROTUM INDICATIONS: acute r testicular pain TECHNIQUE: Real-time scanning was performed of the scrotum and testicles, with image documentation. Color and pulse Doppler interrogation was performed of both testicles. COMPARISON: None. FINDINGS: Right: Testicle is normal in size at 3.4 x 1.8 x 3.9 cm, and homogenous in echotexture. Epididymis is normal in overall size and morphology. There is a hydrocele. No varicocele. Overlying scrotal skin is normal in thickness. Left: Testicle is normal in size at 3.0 x 0.7 x 2.2 cm, and homogeneous in echotexture. Epididymis not identified. No hydrocele or varicoceles. Overlying scrotal skin is normal in thickness. Doppler: Color and pulse Doppler demonstrate normal and symmetric arterial flow in both testicles. The right inguinal region was interrogated with a high megahertz linear transducer with without Valsalva. No inguinal hernia is noted. IMPRESSION: 1. No evidence of testicular torsion, testicular mass, orchitis, or epididymitis. 2. No evidence of right inguinal hernia. 3. Left testicle is small, left epididymis is not identified. Dictated by: Sumit Mims M.D. on 12/10/2022 at 14:03 Approved by: Sumit Mims M.D. on 12/10/2022 at 14:06
[2022-12-10] MEDS: KETOROLAC 30 MG/ML VIAL 15 MG IV (12:25)
[2022-12-10 12:26] LABS: Add Manual Diff / Slide Review NO; Basophils Absolute Auto 100 /uL (0-100); Basophils Percent Auto 1.1 % (0-2); Eosinophils Absolute Auto 400 /uL (0-450); Eosinophils Percent Auto 3.3 % (2-4); Hematocrit 45.1 % (41-53); Lymphocytes Absolute Auto 2600 /uL (1100-4500); Lymphocytes Percent Auto 22.5 % (25-40); Mean Corpuscular HGB Conc 33.4 % (30-36); Mean Corpuscular Hemoglobin 27.2 PG (26-34); Mean Corpuscular Volume 81.4 fL (80-100); Monocytes Absolute Auto 700 /uL (0-900); Monocytes Percent Auto 6.2 % (3-14); Neutrophils Absolute Auto 7800 /uL (1500-7000); Neutrophils Percent Auto 66.9 % (50-75); Platelet Count 258 X10^3/uL (150-400); Red Blood Cell Count 5.54 X10^6/uL (4.5-5.9); White Blood Cell Count 11.7 X10^3/uL (4.5-11.0)
[2022-12-10 12:39] LABS: BUN Creatinine Ratio 17.5 (6-22); Blood Urea Nitrogen 18 mg/dL (9-20); Calcium 9.1 mg/dL (8.4-10.2); Carbon Dioxide 21 mmol/L (22-32); Chloride 106 mmol/L (98-107); Estimated Glomerular Filt Rate > 60 mL/min (>60); Glucose 109 mg/dL (70-100); HEMOLYSIS 137 (0-50); Potassium 5.3 mmol/L (3.4-5.1); Sodium 136 mmol/L (137-145)
[2022-12-10 13:19] VITALS: BP 118/65; PULSE 58; O2SAT 97
[2022-12-10 13:50] VITALS: BP 112/66; PULSE 73; RESP 19; O2SAT 95
[2022-12-10 13:59] LABS: Appearance Urine UA CLEAR; Bilirubin Urine UA NEGATIVE (NEGATIVE); Color Urine UA YELLOW; Glucose Urine UA NEGATIVE (Negative); Ketones Urine UA TRACE (NEGATIVE); Leukocyte Esterase Urine UA NEGATIVE (NEGATIVE); Nitrite Urine UA NEGATIVE (Negative); Occult Blood Urine UA NEGATIVE (Negative); Protein Urine UA NEGATIVE (Negative); Urobilinogen Urine UA 0.2 E.U./dL (0.2)
[2022-12-10 14:11] LABS: Bacteria Urine None Seen; RBC Urine 0-1/HPF (0-5/HPF); Squamous Epithelial Cell Urine 0-1 /HPF (0-5/HPF); WBC Urine 0-1/HPF (0-5/HPF)
[2022-12-10 14:12] LABS: Culture Indicated Urine Cult Not Indicated; Mucus Urine 1+ (Negative)
--- NOTE | 2022-12-10 14:44 | ED_ITS ---
HPI - Male Genitourinary <Cem Sinclair PA-C - Last Filed: 12/10/22 18:02> General Chief complaint: Urogenital-Male Stated complaint: testicular pain, hx hernia Time Seen by Provider: 12/10/22 12:04 History of Present Illness HPI Narrative: This is a 52-year-old male presents emergency department due to acute onset right testicular pain onset approximately 4 hours ago. Patient states that he was sitting up in chair when he began feeling pain in his right testicle. He states that over the last 4 hours his testicular pain has improved. He denies any penile discharge or hematuria or dysuria. Denies any abnormal rashes to the area. No enlargement of the testicles. 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 Related Data Home Medications Medication Instructions Recorded Confirmed ibuprofen 200 mg tablet 600 mg PO BID PRN 04/26/19 04/26/19 camphor-menthol 230 mg-70 mg 1 patch topical DAILY 06/04/22 06/04/22 topical patch ([place]) Allergies Allergy/AdvReac Type Severity Reaction Status Date / Time No Known Drug Allergies Allergy Verified 06/04/22 13:22 Review of Systems <Cem Sinclair PA-C - Last Filed: 12/10/22 18:02> Review of Systems Narrative: GENERAL: Denies chills, fatigue, malaise, fever, sweats. HEENT: Denies sinus pain, ear pain, sore throat, difficulty swallowing, dizziness. RESPIRATORY: Denies dyspnea, cough, wheezing, hemoptysis, sputum. CARDIOVASCULAR: Denies chest pain, palpitations, orthopnea, edema, GASTROINTESTINAL: Denies nausea, vomiting, abdominal pain, diarrhea, constipation, melena. : Denies dysuria, frequency, incontinence, hematuria, urinary retention. MUSCULOSKELETAL: denies weakness, joint pain, or bony pain SKIN: Denies rash, skin lesions, or other NEUROLOGIC: Denies weakness, headache, numbness, change in speech, confusion, seizures, incoordination. PSYCHIATRIC: No concerning psychosocial issues. : Right testicular pain 12 point review of systems is negative except for those stated above Patient History <Cem Sinclair PA-C - Last Filed: 12/10/22 18:02> Medical History Anxiety Back pain, thoracic Diverticular disease (~2014) Hepatitis A (~1998) History of post traumatic stress disorder Substance abuse Surgical History Status post hernia repair Family History Mother Age: 69 RSD (reflex sympathetic dystrophy) Social History (Updated 04/27/19 @ 12:09 by Elisabeth Andersen [facility]) marital status: pets and animals: Yes education level: high school occupational status: employed travel history: other leisure activities: other other: SKATING seatbelt use: always helmet use: Yes water heater temp set < 120 deg: Yes working smoke detector in home: Yes fire extinguisher in home: Yes carbon monox detector in home: Yes firearms in home: No do you feel safe at home: Yes Smoking Status: Former smoker second hand exposure: No alcohol intake: never substance use type: marijuana (Daily, smokes and edibles.) during the past year weight has: remained stable well-balanced diet: about half the time daily servings fruits/ve-1 caffeine: Yes (1-2 DRINKS PER DAY, NO SODA) eating out: 1-3 times/week additional social history: PHYSICAL ACTIVITIES: JOB IS [employer] Smoking Status: Former smoker alcohol intake frequency: 0-2 drinks per day Substance Use Type: marijuana Exam <Cem Sinclair PA-C - Last Filed: 12/10/22 18:02> Narrative Exam Narrative: GENERAL: Well-developed patient, in mild distress. HEAD: Atraumatic. Normocephalic. EYES: Pupils equal round and reactive. Extraocular motions intact. No scleral icterus. No injection or drainage. ENT: Nose without bleeding, purulent drainage. Throat without erythema, tonsillar hypertrophy or exudate. Airway patent. NECK: Trachea midline. Non tender CARDIOVASCULAR: Regular rate and rhythm without murmurs, gallops, or rubs. RESPIRATORY: Clear to auscultation. Breath sounds equal bilaterally. No wheezes, rales, or rhonchi. GASTROINTESTINAL: Abdomen soft, non-tender, nondistended. There does appear to be a mass in the right inguinal area at [place] with Valsalva maneuver. This is chronic for the patient. EXTREMITIES: No edema or joint tenderness. BACK: Nontender without deformity or crepitance. No flank tenderness. NEURO: AOx3. SKIN: No rash or erythema of visible areas : No abnormal rashes to the right testicle. No pain with palpation. No changes in testicular pain with elevation of the right testicle. Initial Vital Signs Initial Vital Signs: Vital Signs Temperature 98.0 F 12/10/22 11:48 Pulse Rate 65 12/10/22 11:48 Respiratory Rate 24 12/10/22 11:48 Blood Pressure 131/81 12/10/22 11:48 Pulse Oximetry 99 12/10/22 11:48 Oxygen Delivery Method Room Air 12/10/22 11:48 <DO Lucila Diez Last Filed: 12/11/22 19:21> Initial Vital Signs Initial Vital Signs: Vital Signs Temperature 98.0 F 12/10/22 11:48 Pulse Rate 65 12/10/22 11:48 Respiratory Rate 24 12/10/22 11:48 Blood Pressure 131/81 12/10/22 11:48 Pulse Oximetry 99 12/10/22 11:48 Oxygen Delivery Method Room Air 12/10/22 11:48 Course <Cem Sinclair PA-C - Last Filed: 12/10/22 18:02> Orders Ordered: Discontinued Medications Ketorolac Tromethamine (Ketorolac 30 Mg/Ml Vial) 15 mg IV NOW ONE Stop: 12/10/22 12:07 Last Admin: 12/10/22 12:25 Dose: 15 mg Documented By: RB Vital Signs Vital signs: Vital Signs - 8 hr 12/10/22 11:48 12/10/22 13:19 12/10/22 13:50 Temperature 98.0 F Pulse Rate 65 58 L 73 Respiratory Rate 24 19 Blood Pressure 131/81 118/65 112/66 Pulse Oximetry 99 97 95 Oxygen Delivery Method Room Air Room Air Room Air 12/10/22 15:30 Temperature Pulse Rate 67 Respiratory Rate 19 Blood Pressure 132/71 Pulse Oximetry 97 Oxygen Delivery Method <DO Lucila Diez Last Filed: 12/11/22 19:21> Orders Ordered: Discontinued Medications Ketorolac Tromethamine (Ketorolac 30 Mg/Ml Vial) 15 mg IV NOW ONE Stop: 12/10/22 12:07 Last Admin: 12/10/22 12:25 Dose: 15 mg Documented By: RB Vital Signs Vital signs: Vital Signs - 8 hr 12/10/22 11:48 12/10/22 13:19 12/10/22 13:50 Temperature 98.0 F Pulse Rate 65 58 L 73 Respiratory Rate 24 19 Blood Pressure 131/81 118/65 112/66 Pulse Oximetry 99 97 95 Oxygen Delivery Method Room Air Room Air Room Air 12/10/22 15:30 Temperature Pulse Rate 67 Respiratory Rate 19 Blood Pressure 132/71 Pulse Oximetry 97 Oxygen Delivery Method MDM - Male Genitourinary <Cem Sinclair PA-C - Last Filed: 12/10/22 18:02> Lab Data 12/10/22 12:03 12/10/22 12:03 Labs: Lab Results 12/10/22 12/10/22 12/10/22 Range/Units 12:03 12:03 13:25 WBC 11.7 H (4.5-11.0) X10^3/uL RBC 5.54 (4.5-5.9) X10^6/uL Hgb 15.0 (13.5-17.5) g/dL Hct 45.1 (41-53) % MCV 81.4 (80-100) fL MCH 27.2 (26-34) PG MCHC 33.4 (30-36) % RDW 13.0 (11.6-14.8) % Plt Count 258 (150-400) X10^3/uL Neut % (Auto) 66.9 (50-75) % Lymph % (Auto) 22.5 L (25-40) % [place] % (Auto) 6.2 (3-14) % Eos % (Auto) 3.3 (2-4) % Baso % (Auto) 1.1 (0-2) % Neut # (Auto) 7800 H (3909-1167) /uL Lymph # (Auto) 2600 (0668-4165) /uL [place] # (Auto) 700 (0-900) /uL Eos # (Auto) 400 (0-450) /uL Baso # (Auto) 100 (0-100) /uL Sodium 136 L (137-145) mmol/L Potassium 5.3 H (3.4-5.1) mmol/L Chloride 106 (98-107) mmol/L Carbon Dioxide 21 L (22-32) mmol/L BUN 18 (9-20) mg/dL Creatinine 1.03 (0.66-1.25) mg/dL Estimated GFR > 60 (>60) mL/min BUN/Creatinine Ratio 17.5 (6-22) Glucose 109 H (70-100) mg/dL Calcium 9.1 (8.4-10.2) mg/dL Urine Color Yellow Urine Appearance Clear Urine pH 6.0 (4.5-8.0) Ur Specific [place] 1.020 (1.000-1.035) Urine Protein Negative (Negative) Urine Glucose (UA) Negative (Negative) g/dL Urine Ketones Trace H (NEGATIVE) Urine Occult Blood Negative (Negative) Urine Nitrate Negative (Negative) Urine Bilirubin Negative (NEGATIVE) Urine Urobilinogen 0.2 (0.2) E.U./dL Ur Leukocyte Esterase Negative (NEGATIVE) Urine RBC 0-1/hpf (0-5/HPF) Urine WBC 0-1/hpf (0-5/HPF) Ur Squamous Epith Cells 0-1 /hpf (0-5/HPF) Urine Bacteria None seen (None) Urine Mucus 1+ H (Negative) Ur Culture Indicated? Cult not indicated Ur Chlamydia DNA (PCR) N gonorrhoeae DNA (PCR) 12/10/22 Range/Units 13:25 WBC (4.5-11.0) X10^3/uL RBC (4.5-5.9) X10^6/uL Hgb (13.5-17.5) g/dL Hct (41-53) % MCV (80-100) fL MCH (26-34) PG MCHC (30-36) % RDW (11.6-14.8) % Plt Count (150-400) X10^3/uL Neut % (Auto) (50-75) % Lymph % (Auto) (25-40) % [place] % (Auto) (3-14) % Eos % (Auto) (2-4) % Baso % (Auto) (0-2) % Neut # (Auto) (1621-9969) /uL Lymph # (Auto) (9769-1368) /uL [place] # (Auto) (0-900) /uL Eos # (Auto) (0-450) /uL Baso # (Auto) (0-100) /uL Sodium (137-145) mmol/L Potassium (3.4-5.1) mmol/L Chloride (98-107) mmol/L Carbon Dioxide (22-32) mmol/L BUN (9-20) mg/dL Creatinine (0.66-1.25) mg/dL Estimated GFR (>60) mL/min BUN/Creatinine Ratio (6-22) Glucose (70-100) mg/dL Calcium (8.4-10.2) mg/dL Urine Color Urine Appearance Urine pH (4.5-8.0) Ur Specific [place] (1.000-1.035) Urine Protein (Negative) Urine Glucose (UA) (Negative) g/dL Urine Ketones (NEGATIVE) Urine Occult Blood (Negative) Urine Nitrate (Negative) Urine Bilirubin (NEGATIVE) Urine Urobilinogen (0.2) E.U./dL Ur Leukocyte Esterase (NEGATIVE) Urine RBC (0-5/HPF) Urine WBC (0-5/HPF) Ur Squamous Epith Cells (0-5/HPF) Urine Bacteria (None) Urine Mucus (Negative) Ur Culture Indicated? Ur Chlamydia DNA (PCR) Not detected N gonorrhoeae DNA (PCR) Not detected Urine Dip Bedside Urine Glucose Negative Bedside Urine Bilirubin + 1 Bedside Urine Ketone +/- 5 Urine Specific [place] 1.020 Bedside Urine Occult Blood - Negative Bedside Urine pH 6.0 Bedside Urine Protein - Negative Bedside Urine Urobilinogen - Negative Bedside Urine Nitrite - Negative Bedside Urine Leukocytes - Negative Esterase Imaging Data Scrotum US : Radiologist's Impression: [address] [address] Ultrasound Report Signed Patient: Marty Pineda MR#: [id number] : 1970 Acct:[id number] Age/Sex: 52 / M Date of Service: 12/10/22 Loc: ED Accession Number: [id number] ?? Procedure: US scrotum Ordering Provider: Indiana López D.O. PROCEDURE:? US SCROTUM ? INDICATIONS:? acute r testicular pain ? TECHNIQUE:? Real-time scanning was performed of the scrotum and testicles, with image documentation.? Color and pulse Doppler interrogation was performed of both testicles.? ? COMPARISON:? None. ? FINDINGS:? ? Right:? Testicle is normal in size at 3.4 x 1.8 x 3.9 cm, and homogenous in echotexture.? Epididymis is normal in overall size and morphology.? There is a hydrocele.? No varicocele.? Overlying scrotal skin is normal in thickness.? ? Left:? Testicle is normal in size at 3.0 x 0.7 x 2.2 cm, and homogeneous in echotexture.? Epididymis not identified.? No hydrocele or varicoceles.? Overlying scrotal skin is normal in thickness.? ? Doppler:? Color and pulse Doppler demonstrate normal and symmetric arterial flow in both testicles.? ? The right inguinal region was interrogated with a high megahertz linear transducer with without Valsalva.? No inguinal hernia is noted. ? IMPRESSION:? ? 1. No evidence of testicular torsion, testicular mass, orchitis, or epididymitis. ? 2. No evidence of right inguinal hernia. ? 3. Left testicle is small, left epididymis is not identified.? ? ? Dictated by: Sumit Mims M.D. on 12/10/2022 at 14:03 ? ? Approved by: Sumit Mims M.D. on 12/10/2022 at 14:06? MDM Narrative Medical decision making narrative: MDM * differential diagnosis includes but not limited to testicular torsion, hydrocele, varicocele, epididymitis, UTI, gonorrhea, chlamydia * Prior records reviewed: Patient was seen here 3 years ago for neck and arm pain for the last 2 weeks. Has a history of chronic thoracic back pain. History of anxiety. History of hernia repair. * My lab interpretation: UA showed no evidence of UTI, gonorrhea and chlamydia pending, CBC and CMP unremarkable. * My imgaing interpretation: Ultrasound negative for any testicular abnormali ties. * Clinical Decision Rules/Scores evaluated: None * Independent discussions with: None ED Course: This is a 52-year-old male presents emergency department complaining of a episode of right testicular pain which has improved before my arrival to the room. Ultrasound was negative for testicular torsion or hydrocele or epididymitis or any other abnormalities. Patient's UA showed no evidence of UTI. Patient elected to leave the emergency department prior to the gonorrhea and chlamydia results viable inform of him when they are available. Recommended patient follow up with his primary care provider for possible referral to Urology these episodes of testicular pain continue. Patient did have a noted inguinal hernia which is chronic for him. He has been seen by his primary care provider and elected to not have surgery for it. Shared Decision Making: Discussed plan with patient who is comfortable with the plan Social Considerations: None Disposition: Discharged to home <Indiana López, DO - Last Filed: 12/11/22 19:21> Lab Data Labs: Lab Results 12/10/22 12/10/22 12/10/22 Range/Units 12:03 12:03 13:25 WBC 11.7 H (4.5-11.0) X10^3/uL RBC 5.54 (4.5-5.9) X10^6/uL Hgb 15.0 (13.5-17.5) g/dL Hct 45.1 (41-53) % MCV 81.4 (80-100) fL MCH 27.2 (26-34) PG MCHC 33.4 (30-36) % RDW 13.0 (11.6-14.8) % Plt Count 258 (150-400) X10^3/uL Neut % (Auto) 66.9 (50-75) % Lymph % (Auto) 22.5 L (25-40) % [place] % (Auto) 6.2 (3-14) % Eos % (Auto) 3.3 (2-4) % Baso % (Auto) 1.1 (0-2) % Neut # (Auto) 7800 H (3391-0531) /uL Lymph # (Auto) 2600 (4469-5395) /uL [place] # (Auto) 700 (0-900) /uL Eos # (Auto) 400 (0-450) /uL Baso # (Auto) 100 (0-100) /uL Sodium 136 L (137-145) mmol/L Potassium 5.3 H (3.4-5.1) mmol/L Chloride 106 (98-107) mmol/L Carbon Dioxide 21 L (22-32) mmol/L BUN 18 (9-20) mg/dL Creatinine 1.03 (0.66-1.25) mg/dL Estimated GFR > 60 (>60) mL/min BUN/Creatinine Ratio 17.5 (6-22) Glucose 109 H (70-100) mg/dL Calcium 9.1 (8.4-10.2) mg/dL Urine Color Yellow Urine Appearance Clear Urine pH 6.0 (4.5-8.0) Ur Specific [place] 1.020 (1.000-1.035) Urine Protein Negative (Negative) Urine Glucose (UA) Negative (Negative) g/dL Urine Ketones Trace H (NEGATIVE) Urine Occult Blood Negative (Negative) Urine Nitrate Negative (Negative) Urine Bilirubin Negative (NEGATIVE) Urine Urobilinogen 0.2 (0.2) E.U./dL Ur Leukocyte Esterase Negative (NEGATIVE) Urine RBC 0-1/hpf (0-5/HPF) Urine WBC 0-1/hpf (0-5/HPF) Ur Squamous Epith Cells 0-1 /hpf (0-5/HPF) Urine Bacteria None seen (None) Urine Mucus 1+ H (Negative) Ur Culture Indicated? Cult not indicated Ur Chlamydia DNA (PCR) N gonorrhoeae DNA (PCR) 12/10/22 Range/Units 13:25 WBC (4.5-11.0) X10^3/uL RBC (4.5-5.9) X10^6/uL Hgb (13.5-17.5) g/dL Hct (41-53) % MCV (80-100) fL MCH (26-34) PG MCHC (30-36) % RDW (11.6-14.8) % Plt Count (150-400) X10^3/uL Neut % (Auto) (50-75) % Lymph % (Auto) (25-40) % [place] % (Auto) (3-14) % Eos % (Auto) (2-4) % Baso % (Auto) (0-2) % Neut # (Auto) (2442-0993) /uL Lymph # (Auto) (9085-7584) /uL [place] # (Auto) (0-900) /uL Eos # (Auto) (0-450) /uL Baso # (Auto) (0-100) /uL Sodium (137-145) mmol/L Potassium (3.4-5.1) mmol/L Chloride (98-107) mmol/L Carbon Dioxide (22-32) mmol/L BUN (9-20) mg/dL Creatinine (0.66-1.25) mg/dL Estimated GFR (>60) mL/min BUN/Creatinine Ratio (6-22) Glucose (70-100) mg/dL Calcium (8.4-10.2) mg/dL Urine Color Urine Appearance Urine pH (4.5-8.0) Ur Specific [place] (1.000-1.035) Urine Protein (Negative) Urine Glucose (UA) (Negative) g/dL Urine Ketones (NEGATIVE) Urine Occult Blood (Negative) Urine Nitrate (Negative) Urine Bilirubin (NEGATIVE) Urine Urobilinogen (0.2) E.U./dL Ur Leukocyte Esterase (NEGATIVE) Urine RBC (0-5/HPF) Urine WBC (0-5/HPF) Ur Squamous Epith Cells (0-5/HPF) Urine Bacteria (None) Urine Mucus (Negative) Ur Culture Indicated? Ur Chlamydia DNA (PCR) Not detected N gonorrhoeae DNA (PCR) Not detected Urine Dip Bedside Urine Glucose Negative Bedside Urine Bilirubin + 1 Bedside Urine Ketone +/- 5 Urine Specific [place] 1.020 Bedside Urine Occult Blood - Negative Bedside Urine pH 6.0 Bedside Urine Protein - Negative Bedside Urine Urobilinogen - Negative Bedside Urine Nitrite - Negative Bedside Urine Leukocytes - Negative Esterase Discharge Plan Departure Patient Disposition: Home Clinical Impression: Pain in right testicle Activity Restrictions/Additional Instructions: Thank you for coming to the [facility] Emergency Department today. Your ultrasound showed no evidence of a testicular torsion or any other abnormality to your right testicle. Your lab work was also unremarkable and low concern for any kind of infection, UTI. I will call you if your gonorrhea or chlamydia results come back positive. Please follow up with your primary care provider as they may be able to refer you to urology if these testicular pains continue. I hope you feel better soon. Prescriptions: No Action [place] 230-70 mg adhesive patch,medicated 1 patch topical DAILY ibuprofen 200 mg tablet 600 mg PO BID PRN Referrals: Timo Nicole ARNP [Primary Care Provider] - Stand Alone Forms: Patient Portal/API <Indiana López DO - Last Filed: 12/11/22 19:21> Cosign ED Attending Poloature Attestation: I was immediately available in the department for consultation. Documentation has been reviewed. Case was discussed.
[2022-12-10 15:30] VITALS: BP 132/71; PULSE 67; RESP 19; O2SAT 97
[2022-12-10 15:55] LABS: Urine N gonorrhoeae NOT DETECTED
[2022-12-10 15:56] LABS: Urine Chlamydia NOT DETECTED
== END 2022-12-10 15:57 | disposition home or self-care (01) ==
PROVIDERS: Emergency Medicine; Emergency Provider Physician Assistant Medical; PCP Nurse Practitioner Family
DX: N50.811 Right testicular pain (principal)
CPT/HCPCS: 36415; 76870; 80048; 81001; 81003; 85025; 87491; 87591; 96374; 99284; J1885

== ENCOUNTER → 2023-01-06 14:04 | Outpatient (CLI) | payer OTHER, MEDICAID, SELFPAY ==
--- NOTE | 2023-01-06 14:06 | DI.RAD.S_ITS ---
PROCEDURE: XR KNEE RT 3V INDICATIONS: knee pain. please include wt bearing views TECHNIQUE: 3 views of the knee were acquired, including a weight-bearing AP view. COMPARISON: Located Within [facility], CR, XR KNEE RT 3V, 01/09/2019, 11:22. Located Within [facility], CR, XR KNEE LT 3V, 01/06/2023, 14:03. FINDINGS: Bones: No fractures or dislocations. No suspicious bony lesions. There is mild medial femorotibial joint space narrowing seen, with associated remodeling changes including subchondral sclerosis and osteophyte formation along the jointline. Soft tissues: No joint effusion. No suspicious soft tissue calcifications. IMPRESSION: Mild medial femorotibial joint space narrowing can be seen on the weight-bearing AP view. If it would be helpful for clinical management decision making, please consider a dedicated, scheduled knee MRI for further evaluation (assuming that there is no contraindication). Dictated by: Reynold Christianson M.D. on 01/06/2023 at 15:15 Approved by: Reynold Christianson M.D. on 01/06/2023 at 15:16
--- NOTE | 2023-01-06 14:06 | DI.RAD.S_ITS ---
PROCEDURE: XR KNEE LT 3V INDICATIONS: knee pain. please include wt bearing views TECHNIQUE: 3 views of the knee were acquired. COMPARISON: [facility], CR, XR KNEE RT 3V, 01/09/2019, 11:22. FINDINGS: Bones: No fractures or dislocations. No suspicious bony lesions. Mild medial compartmental joint space narrowing Soft tissues: No joint effusion. No suspicious soft tissue calcifications. IMPRESSION: Mild medial compartmental joint space narrowing Approved by: Nate Crocker M.D. on 01/06/2023 at 18:15
[2023-01-06 16:15] LABS: Cholesterol 230 mg/dL (140-199); HDL Cholesterol 29 mg/dL (40-60); LDL Cholesterol Calculated 129 mg/dL (<100); Lipase 183 U/L (23-300); Triglycerides 359 mg/dL (35-150)
[2023-01-06 16:43] LABS: TSH w/ Reflex to FT4 0.83 uIU/mL (0.47-4.68)
[2023-01-07 05:53] LABS: x Labcorp Estim. Avg Glu (eAG) 114 mg/dL (.); x Labcorp Hemoglobin A1c 5.6 % (4.8-5.6)
== END ==
PROVIDERS: PCP Family Medicine; Referring Provider Family Medicine; Visit Provider Family Medicine
DX: M25.561 Pain in right knee (principal); M25.562 Pain in left knee; K58.9 Irritable bowel syndrome, unspecified; F41.1 Generalized anxiety disorder; R73.09 Other abnormal glucose; Z13.220 Encounter for screening for lipoid disorders
CPT/HCPCS: 36415; 73562; 80061; 83036; 83690; 84443

== ENCOUNTER → 2023-12-22 10:04 | Outpatient (CLI) | payer OTHER, MEDICAID, SELFPAY ==
--- NOTE | 2023-12-22 10:05 | DI.RAD.S_ITS ---
PROCEDURE: XR KNEE LT 3V INDICATIONS: Left knee pain TECHNIQUE: 3 views of the knee were acquired. COMPARISON: [facility], CR, XR KNEE RT 3V, 01/06/2023, 14:03. FINDINGS: Bones: Mild degenerative change of the medial and lateral compartment. No left knee effusion. No acute fracture or dislocation. IMPRESSION: No acute bony abnormality or significant effusion. Dictated by: Neela Cerda M.D. on 12/22/2023 at 11:18 Approved by: Neela Cerda M.D. on 12/22/2023 at 11:19
--- NOTE | 2023-12-22 11:33 | DI.RAD.S_ITS ---
PROCEDURE: XR LUMBAR SPINE MIN 4V INDICATIONS: SCIATICA TECHNIQUE: 5 views of the lumbar spine were acquired, including bilateral oblique views. COMPARISON: None. FINDINGS: Bones: 5 nonrib-bearing vertebrae are present. There is multilevel trace retrolisthesis. Scattered minimal disc space narrowing is present L1-2, L4-5. Minimal to mild foraminal narrowing at L5-S1 and to a lesser degree L4-5. No vertebral body compression fractures. No suspicious bony lesions. Soft tissues: Overlying bowel gas pattern is normal. No suspicious soft tissue calcifications. Oblique images: No pars defects. IMPRESSION: Early degenerative changes most severe at L5-S1. Dictated by: Stacie Pepper M.D. on 12/22/2023 at 13:36 Approved by: Stacie Pepper M.D. on 12/22/2023 at 13:37
--- NOTE | 2023-12-22 11:33 | DI.RAD.S_ITS ---
PROCEDURE: XR PELVIS 1-2V INDICATIONS: SCIATICA TECHNIQUE: 1 view(s) of the pelvis acquired. COMPARISON: None. FINDINGS: Bones: No fractures or dislocations. No suspicious bony lesions. Soft tissues: Visualized bowel gas pattern is normal. No suspicious soft tissue calcifications. IMPRESSION: No acute bony abnormality. Dictated by: Stacie Pepper M.D. on 12/22/2023 at 13:36 Approved by: Stacie Pepper M.D. on 12/22/2023 at 13:36
== END ==
PROVIDERS: PCP Family Medicine; Referring Provider Chiropractor; Visit Provider Nurse Practitioner Family
DX: M54.32 Sciatica, left side (principal); M25.562 Pain in left knee
CPT/HCPCS: 72110; 72170; 73562